=== PATIENT | male | born 1995 | race Caucasian/White ===

== ENCOUNTER 2017-11-17 19:20 | Emergency (ER) | payer SELFPAY | END 2017-11-17 20:15 | disposition home or self-care (01) | LOC: ER 19:20 | DX: K02.9 Dental caries, unspecified (principal); H66.92 Otitis media, unspecified, left ear; J45.909 Unspecified asthma, uncomplicated; I10 Essential (primary) hypertension; Z88.0 Allergy status to penicillin | CPT/HCPCS: 99284 ==

== ENCOUNTER 2018-06-23 06:50 | Emergency (ER) | payer SELFPAY ==
[~2018-06-23] VITALS: Ht 172.7 cm; Wt 176.9 kg
[~2018-06-23 06:50] MED LIST: CEPH-264 PO
--- NOTE | 2018-06-23 06:54 | PHYS DOC ---
Past Medical History Past Medical History: Asthma, Hypertension Past Surgical History: Tonsillectomy, Other Additional Past Surgical Histo: wisdom teeth Alcohol Use: None Drug Use: None Adult General Chief Complaint Chief Complaint: EARACHE/EAR PAIN HPI HPI Patient is a 23 year old male who presents with left ear pain. She complains of pain in the left ear which started over the last 24 hours. He's had no fever or chills. He does relate a prior history of multiple ear infections since he was a child. No neck pain or stiffness. No headaches. Patient is known to have multiple dental caries on the left side and does have scheduled appointment with a dentist later today. Review of Systems Review of Systems Constitutional: Denies fever or chills Eyes: Denies change in visual acuity HENT: Denies nasal congestion or sore throat Respiratory: Denies cough or shortness of breath Cardiovascular: No additional information not addressed in HPI Musculoskeletal: Denies back pain or joint pain Integument: Denies rash or skin lesions Neurologic: Denies headache All other systems were reviewed and found to be within normal limits, except as documented in this note. Allergies Allergies Allergies Coded Allergies Type Severity Reaction Last Updated Verified Penicillins Allergy Intermediate 05/20/14 No Physical Exam Physical Exam Constitutional: Well developed, well nourished, no acute distress, non-toxic appearance HENT: Normocephalic, atraumatic, bilateral external ears normal, oropharynx moist, no oral exudates, nose normal, TM on left is clear, palomino, with + light reflex, multiple dental caries and fractures are present over the left upper and lower molar area. No abscess or fluctuance is seen. Floor of mouth is soft. Posterior oral pharynx is clear Eyes: PERRLA, EOMI, conjunctiva normal, no discharge Neck: Normal range of motion, no tenderness, supple, no stridor Cardiovascular:Heart rate regular rhythm, no murmur Lungs & Thorax: Bilateral breath sounds clear to auscultation Skin: Warm, dry Extremities: No tenderness Neurologic: Alert and oriented X 3 Psychologic: Affect normal EKG EKG [] Radiology/Procedures Radiology/Procedures [] Course & Med Decision Making Course & Med Decision Making Pertinent Labs and Imaging studies reviewed. (See chart for details) Patient is seen for left ear pain. No acute ear infection is present on exam but the patient describes pain along the SCM muscle and left jaw. Poor dentition. Source of the patient's discomfort seems most likely from a dental source. He is given ibuprofen and clindamycin in the ER (PCN allergic). Discharged home with Rx for the same. Advised to keep his already scheduled appointment later today. F/u with PCP also or return to the ER for any new or worsening symptoms. Dragon Disclaimer Dragon Disclaimer This electronic medical record was generated, in whole or in part, using a voice recognition dictation system. Departure Departure Referrals: NO PCP (PCP) Scripts Clindamycin Hcl (CLINDAMYCIN HCL) 300 Mg Capsule 300 MG PO TID for 7 Days, #21 CAP Prov: DANNY WEINSTEIN DO 06/23/18 Ibuprofen (IBUPROFEN) 800 Mg Tablet 800 MG PO PRN TID PRN for PAIN, #21 TAB take with food or milk to avoid upsetting stomach Prov: DANNY WEINSTEIN DO 06/23/18 DANNY WEINSTEIN DO Jun 23, 2018 06:54
[2018-06-23 07:12] VITALS: BP 170/88
[2018-06-23] MEDS ORDERED: CLIN300C8 PO (07:22)
[2018-06-23] MEDS ORDERED: IBUP-1060 PO (07:22)
[2018-06-23] MEDS: IBUPROFEN 800 MG TABLET. PO ONE (07:30)
[2018-06-23] MEDS ORDERED: traMADol 50 MG TABLET ONE (07:31)
[2018-06-23] MEDS ORDERED: TRAM50TA PO (07:31)
[2018-06-23] MEDS: CLINDAMYCIN HCL 150 MG CAPSULE. PO ONE (07:48)
[2018-06-23] MEDS: traMADol 50 MG TABLET PO ONE (07:51)
== END 2018-06-23 07:34 | disposition home or self-care (01) ==
LOC: ER 06:50
DX: H92.02 Otalgia, left ear (principal); K02.9 Dental caries, unspecified; J45.909 Unspecified asthma, uncomplicated; I10 Essential (primary) hypertension; Z90.89 Acquired absence of other organs; Z88.0 Allergy status to penicillin
CPT/HCPCS: 99283

== ENCOUNTER 2020-12-08 02:59 | Emergency (ER) | payer SELFPAY ==
[~2020-12-08] VITALS: Ht 177.8 cm; Wt 193.4 kg
[~2020-12-08 02:59] MED LIST changes: +CLIN300C9 PO; +IBUP-1060 PO; +TRAM50TA PO
--- NOTE | 2020-12-08 03:45 | ED.ADGEN ---
Past Medical History Past Medical History: Asthma, Diabetes-Type II, Hypertension Past Surgical History: Tonsillectomy, Other Additional Past Surgical Histo: wisdom teeth Smoking Status: Never Smoker Alcohol Use: Rarely Drug Use: None General Adult EDM: Chief Complaint: SKIN RASH/ABSCESS HPI: HPI: 25-year-old male coming in for diffuse upper body skin rash. Patient states the rash started off on his right arm and then his left arm. None stated it went across his trunk. Says the rash is itchy and he has been scratching at it. Has been using angh-jlr-zokysve creams without improvement. Denies any fevers, has had a nonproductive cough. No vomiting or diarrhea. Patient states he has a history of asthma and possibly diabetes. Denies any history of IV drug use. No denies any sick contacts. Review of Systems: Review of Systems: All other systems within normal limits except for as noted in the HPI Current Medications: Current Medications Medications (Trade) Dose Ordered Sig/Jocelyne Start Time Stop Time Status Last Admin Dose Admin Diphenhydramine HCl (Benadryl) 50 mg 1X ONCE 12/08/20 04:00 12/08/20 04:01 DC 12/08/20 04:09 50 MG Sodium Chloride 500 ml @ 500 mls/hr 1X ONCE 12/08/20 04:00 12/08/20 04:59 DC 12/08/20 04:06 500 MLS/HR Allergies: Allergies: Allergies Coded Allergies Type Severity Reaction Last Updated Verified Penicillins Allergy Intermediate 05/20/14 No Physical Exam: PE: Constitutional: Well developed, well nourished, obese, ill-appearing [] HENT: Normocephalic, atraumatic, bilateral external ears normal, nose normal. [] Eyes: PERRLA, conjunctiva normal, no discharge. [] Neck: No rigidity, supple, no stridor. [] Cardiovascular: Tachycardic, regular rhythm, brisk cap refill [] Lungs & Thorax: Symmetric chest expansion, tachypneic [] Abdomen: Soft, nondistended. Skin: Warm, diffuse macular rash with excoriated areas] Back: Unremarkable Extremities: No deformities, range of motion grossly intact, no lower extremity edema [] Neurologic: Alert and oriented X 3, no focal deficits noted. [] Psychologic: Affect normal, judgement normal, mood normal. [] Current Patient Data: Labs: Laboratory Tests Test 12/08/20 04:00 12/08/20 04:24 White Blood Count 8.3 x10^3/uL (4.0-11.0) Red Blood Count 5.37 x10^6/uL (4.30-5.70) Hemoglobin 15.5 g/dL (13.0-17.5) Hematocrit 45.8 % (39.0-53.0) Mean Corpuscular Volume 85 fL (79-100) Mean Corpuscular Hemoglobin 29 pg (25-35) Mean Corpuscular Hemoglobin Concent 34 g/dL (31-37) Red Cell Distribution Width 14.5 % (11.5-14.5) Platelet Count 240 x10^3/uL (140-400) Neutrophils (%) (Auto) 75 % (31-73) H Lymphocytes (%) (Auto) 9 % (24-48) L Monocytes (%) (Auto) 7 % (0-9) Eosinophils (%) (Auto) 8 % (0-3) H Basophils (%) (Auto) 1 % (0-3) Neutrophils # (Auto) 6.3 x10^3/uL (1.8-7.7) Lymphocytes # (Auto) 0.8 x10^3/uL (1.0-4.8) L Monocytes # (Auto) 0.6 x10^3/uL (0.0-1.1) Eosinophils # (Auto) 0.6 x10^3/uL (0.0-0.7) Basophils # (Auto) 0.0 x10^3/uL (0.0-0.2) Sodium Level 137 mmol/L (136-145) Potassium Level 4.0 mmol/L (3.5-5.1) Chloride Level 102 mmol/L (98-107) Carbon Dioxide Level 25 mmol/L (21-32) Anion Gap 10 (6-14) Blood Urea Nitrogen 10 mg/dL (8-26) Creatinine 1.0 mg/dL (0.7-1.3) Estimated GFR (Cockcroft-Gault) 89.6 BUN/Creatinine Ratio 10 (6-20) Glucose Level 121 mg/dL (70-99) H Lactic Acid Level 1.5 mmol/L (0.4-2.0) Calcium Level 8.3 mg/dL (8.5-10.1) L Total Bilirubin 1.2 mg/dL (0.2-1.0) H Aspartate Amino Transferase (AST) 38 U/L (15-37) H Alanine Aminotransferase (ALT) 55 U/L (16-63) Alkaline Phosphatase 69 U/L (46-116) Troponin I Quantitative < 0.017 ng/mL (0.000-0.055) AG-Tht-L-Type Natriuretic Peptide 144 pg/mL (0-124) H Total Protein 6.7 g/dL (6.4-8.2) Albumin 3.1 g/dL (3.4-5.0) L Albumin/Globulin Ratio 0.9 (1.0-1.7) L POC Venous pH 7.35 (7.32-7.42) POC Venous pCO2 44 mmHg (41-51) POC Venous pO2 64 mmHg (20-40) H Venous Blood HCO3 24 mmol/L (24-28) POC Venous O2 Saturation ([place]) 91 % POC FiO2 21.0 Laboratory Tests 12/08/20 04:00 Laboratory Tests 12/08/20 04:00 Vital Signs: Vital Signs Date Time Temp Pulse Resp B/P (MAP) Pulse Ox O2 Delivery O2 Flow Rate FiO2 12/08/20 04:42 106 143/86 (105) 100 Room Air 12/08/20 03:00 98.7 20 98.7 EKG: EKG: Sinus tachycardia, heart enters the beats per minute, normal axis, no ST elevation or depression, no ectopy. Normal intervals. [] Heart Score: C/O Chest Pain: N/A Risk Factors: Risk Factors: DM, Current or recent (<one month) smoker, HTN, HLP, family history of CAD, obesity. Risk Scores: Score 0 - 3: 2.5% MACE over next 6 weeks - Discharge Home Score 4 - 6: 20.3% MACE over next 6 weeks - Admit for Clinical Observation Score 7 - 10: 72.7% MACE over next 6 weeks - Early Invasive Strategies Radiology/Procedures: Radiology/Procedures: [] Course & Med Decision Making: Course & Med Decision Making Symptoms improved and labs unremarkable. Patient feeling better after IV Benadryl. Will give Solu-Medrol and first dose of clindamycin here. Patient has a reaction of hives to penicillins. Discussed return precautions if not getting better. Ally Disclaimer: Ally Disclaimer: This electronic medical record was generated, in whole or in part, using a voice recognition dictation system. Departure Departure Impression: Primary Impression: Hives Additional Impression: Cellulitis Disposition: 01 DC HOME SELF CARE/HOMELESS Condition: STABLE Referrals: NO PCP (PCP) Patient Instructions: Hives Additional Instructions: Follow-up with a primary care provider from the packet provided. Return to emergency department if symptoms worsen, difficulty breathing or throat swelling, fevers over 100. Scripts Hydrocodone/Acetaminophen (Hydrocodone-Acetamin 5-325 mg) 1 Each Tablet 1 EACH PO PRN Q6-8HRS PRN for PAIN for 3 Days, #10 TAB Prov: DOLORES ROME MD 12/08/20 Hydroxyzine Hcl (HYDROXYZINE HCL) 50 Mg Tablet 50 MG PO TID PRN for ITCHING for 10 Days, #30 TAB Prov: DOLORES ROME MD 12/08/20 Clindamycin Hcl (CLINDAMYCIN HCL) 150 Mg Capsule 3 CAP PO TID for antibiotic for 7 Days, #63 CAP Prov: DOLORES ROME MD 12/08/20 Problem Qualifiers DOLORES ROME MD Dec 08, 2020 03:45
--- NOTE | 2020-12-08 03:58 | EKG ---
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
[2020-12-08] MEDS: IV NORMAL SALINE 500ML BAG 500 ML IV ONE (04:06)
[2020-12-08] MEDS: diphenhydrAMINE 50 MG/ML VIAL IVP ONE (04:09)
[2020-12-08 04:13] LABS: BASO % 1 % (0-3); EOS # 0.6 x10^3/uL (0.0-0.7); EOS % 8 % (0-3); HEMATOCRIT 45.8 % (39.0-53.0); HEMOGLOBIN 15.5 g/dL (13.0-17.5); LYMPH # 0.8 x10^3/uL (1.0-4.8); LYMPH % 9 % (24-48); MEAN CORPUSCULAR HEMOGLOBIN 29 pg (25-35); MEAN CORPUSCULAR HGB CONC 34 g/dL (31-37); MEAN CORPUSCULAR VOLUME 85 fL (79-100); MONO # 0.6 x10^3/uL (0.0-1.1); MONO % 7 % (0-9); NEUT # 6.3 x10^3/uL (1.8-7.7); NEUT % 75 % (31-73); PLATELET COUNT 240 x10^3/uL (140-400); RED BLOOD COUNT 5.37 x10^6/uL (4.30-5.70); RED CELL DISTRIBUTION WIDTH 14.5 % (11.5-14.5); WHITE BLOOD COUNT 8.3 x10^3/uL (4.0-11.0)
[2020-12-08 04:25] LABS: CALCIUM 8.3 mg/dL (8.5-10.1); GFR 89.6
[2020-12-08 04:28] LABS: ISTAT BE VENOUS -1 mmol/L (0-3); ISTAT HCO3 VEN 24 mmol/L (24-28); ISTAT PCO2 VEN 44 mmHg (41-51); ISTAT PH VEN 7.35 (7.32-7.42); ISTAT PO2 VEN 64 mmHg (20-40); ISTAT SAT O2 VEN 91 %; ISTAT TCO2 VEN 26 mmol/L (21-32)
[2020-12-08 04:31] LABS: ALBUMIN 3.1 g/dL (3.4-5.0); ALBUMIN/GLOBULIN RATIO 0.9 (1.0-1.7); TOTAL BILIRUBIN 1.2 mg/dL (0.2-1.0); TOTAL PROTEIN 6.7 g/dL (6.4-8.2)
[2020-12-08] MEDS ORDERED: CLIN150C15 PO (05:32)
[2020-12-08] MEDS ORDERED: HYDR50TA PO (05:32)
[2020-12-08] MEDS ORDERED: HYDR-2759 PO (05:32)
[2020-12-08] MEDS: CLINDAMYCIN HCL 150 MG CAPSULE. PO ONE (05:33)
[2020-12-08] MEDS: methylPREDNISolone SOD SUCC PF 125 MG/2 ML VIAL. IV ONE (05:33)
[2020-12-08 05:35] VITALS: BP 153/70
[2020-12-08 05:48] LABS: BILIRUBIN,URINE SMALL (NEG); CLARITY,URINE CLEAR; COLOR,URINE AMBER; NITRITE,URINE NEGATIVE (NEG); PH,URINE 5.5 (<5.0-8.0); PROTEIN,URINE 30 mg/dL (NEG-TRACE); UROBILINOGEN,URINE 0.2 mg/dL (0.2 mg/dL)
[2020-12-08 06:02] LABS: BACTERIA,URINE 0 /HPF (0-FEW); RBC,URINE 0 /HPF (0-2)
[2020-12-08 06:03] LABS: GRANULAR CASTS,URINE MODERATE /HPF; HYALINE CASTS, URINE MODERATE /HPF
[2020-12-08 06:05] LABS: BARBITURATES NEG (NEG); BENZODIAZEPINES NEG (NEG); CANNABINOIDS NEG (NEG); COCAINE NEG (NEG); METHADONE NEG (NEG); OPIATES NEG (NEG); PHENCYCLIDINE NEG (NEG)
[2020-12-08 06:08] LABS: AMPHETAMINE/METHAMPHETAMINE NEG (NEG)
== END 2020-12-08 05:40 | disposition home or self-care (01) ==
LOC: ER 02:59
DX: L50.9 Urticaria, unspecified (principal); L03.818 Cellulitis of other sites; J45.909 Unspecified asthma, uncomplicated; E11.9 Type 2 diabetes mellitus without complications; I10 Essential (primary) hypertension; Z88.0 Allergy status to penicillin
CPT/HCPCS: 36415; 80053; 80307; 81001; 82803; 83605; 83880; 84484; 85025; 87040; 87086; 93005; 96361; 96374; 96375; 99285; J1200; J2930; J7040

== ENCOUNTER 2020-12-14 22:48 | Inpatient (IN) | payer SELFPAY ==
[~2020-12-14] VITALS: Ht 177.8 cm; Wt 188.5 kg
[~2020-12-14 22:48] MED LIST changes: +CLIN150C15 PO; +HYDR-2759 PO; +HYDR50TA PO
--- NOTE | 2020-12-15 01:08 | PHYS DOC ---
Past Medical History Past Medical History: Asthma, Diabetes-Type II, Hypertension Past Surgical History: Tonsillectomy, Other Additional Past Surgical Histo: wisdom teeth Smoking Status: Never Smoker Alcohol Use: Rarely Drug Use: None General Adult EDM: Chief Complaint: SKIN PROBLEM HPI: HPI: Patient is a 25 year old male presents with a chief complaint of rash. Rash is diffuse in nature includes bilateral extremities torso and abdomen. Patient states rash is been ongoing for 1 month progressively becoming worse. Patient was seen in the emergency department 1 week ago placed on antibiotics. Review of Systems: Review of Systems: Review of systems: Constitutional symptoms- No fever, no chills. Eyes- No Discharge, No Visual Loss Respiratory symptoms- No shortness of breath, No wheezing, No Dyspnea on Exertion Cardiovascular Systems; No chest pain, No Palpitations, No syncope Gastrointestinal symptoms: NO abdominal pain, no nausea, no vomiting or diarrhea. Genitourinary symptoms: No dysuria. Musculoskeletal symptoms: No back pain No extremity pain. NEUROLOGICAL Symptoms: No headache, no generalized weakness; No focal Weakness Skin positive rash positive itch Heart Score: C/O Chest Pain: No Risk Factors: Risk Factors: DM, Current or recent (<one month) smoker, HTN, HLP, family history of CAD, obesity. Risk Scores: Score 0 - 3: 2.5% MACE over next 6 weeks - Discharge Home Score 4 - 6: 20.3% MACE over next 6 weeks - Admit for Clinical Observation Score 7 - 10: 72.7% MACE over next 6 weeks - Early Invasive Strategies Allergies: Allergies: Allergies Coded Allergies Type Severity Reaction Last Updated Verified Penicillins Allergy Intermediate 05/20/14 No Physical Exam: PE: Constitutional: Well developed, well nourished, no acute distress, non-toxic appearance. [] HENT: Normocephalic, atraumatic, bilateral external ears normal, oropharynx moist, no oral exudates, nose normal. [] Eyes: PERRLA, EOMI, conjunctiva normal, no discharge. [] Neck: Normal range of motion, no tenderness, supple, no stridor. [] Cardiovascular:Heart rate regular rhythm, no murmur [] Lungs & Thorax: Bilateral breath sounds clear to auscultation [] Abdomen: Bowel sounds normal, soft, no tenderness, no masses, no pulsatile masses. [] Skin: Diffuse rash extremities TORSO abdomen excoriated regions Back: No tenderness, no CVA tenderness. [] Extremities: No tenderness, no cyanosis, no clubbing, ROM intact, no edema. [] Neurologic: Alert and oriented X 3, normal motor function, normal sensory function, no focal deficits noted. [] Psychologic: Affect normal, judgement normal, mood normal. [] Current Patient Data: Vital Signs: Vital Signs Date Time Temp Pulse Resp B/P (MAP) Pulse Ox O2 Delivery O2 Flow Rate FiO2 12/14/20 23:35 97.6 96 20 138/73 (94) 99 Room Air 97.6 EKG: EKG: [] Radiology/Procedures: Radiology/Procedures: [] Course & Med Decision Making: Course & Med Decision Making Pertinent Labs and Imaging studies reviewed. (See chart for details) [] Patient admitted to the hospital treated with vancomycin and admitted for further evaluation and treatment. Ally Disclaimer: Ally Disclaimer: This electronic medical record was generated, in whole or in part, using a voice recognition dictation system. Departure Departure Impression: Primary Impression: Rash and nonspecific skin eruption Additional Impression: Cellulitis Disposition: ADMITTED INPT THIS HOSP Condition: STABLE Referrals: NO PCP (PCP) ARCHANA GEIGER DO Dec 15, 2020 01:08
[2020-12-15] MEDS ORDERED: VANCOMYCIN 1.25 GM in IV NORMAL SALINE 250ML 250 ML IV ONE (02:00)
[2020-12-15 03:06] LABS: BASO # 0.1 x10^3/uL (0.0-0.2); BASO % 1 % (0-3); EOS # 1.2 x10^3/uL (0.0-0.7); EOS % 21 % (0-3); HEMATOCRIT 41.7 % (39.0-53.0); HEMOGLOBIN 14.4 g/dL (13.0-17.5); LYMPH # 1.2 x10^3/uL (1.0-4.8); LYMPH % 21 % (24-48); MEAN CORPUSCULAR HEMOGLOBIN 29 pg (25-35); MEAN CORPUSCULAR HGB CONC 35 g/dL (31-37); MEAN CORPUSCULAR VOLUME 84 fL (79-100); MONO # 0.5 x10^3/uL (0.0-1.1); MONO % 10 % (0-9); NEUT # 2.6 x10^3/uL (1.8-7.7); NEUT % 47 % (31-73); PLATELET COUNT 226 x10^3/uL (140-400); RED BLOOD COUNT 4.99 x10^6/uL (4.30-5.70); RED CELL DISTRIBUTION WIDTH 14.2 % (11.5-14.5); WHITE BLOOD COUNT 5.5 x10^3/uL (4.0-11.0)
[2020-12-15 03:23] LABS: CREATININE 0.9 mg/dL (0.7-1.3); GFR 101.2; POTASSIUM 4.1 mmol/L (3.5-5.1)
[2020-12-15 03:29] LABS: ALBUMIN 3.1 g/dL (3.4-5.0); ALBUMIN/GLOBULIN RATIO 0.9 (1.0-1.7); TOTAL BILIRUBIN 1.3 mg/dL (0.2-1.0); TOTAL PROTEIN 6.5 g/dL (6.4-8.2)
[2020-12-15 03:33] VITALS: BP 153/83
--- NOTE | 2020-12-15 04:31 | NUR ---
The patient, DEEDEE BARKLEY, 25 y/o, M admitted by CORNEL ANTHONY III, DO, was given written information regarding hospital policies, unit procedures and contact persons. Valuables were checked and .
[2020-12-15 04:54] LABS: % BANDS 2 % (0-9); % EOS 18 % (0-5); % LYMPHS 20 % (24-48); % MONOS 10 % (0-10); % SEGS 50 % (35-66); PLT ESTIMATE ADEQUATE (ADEQUATE); TOXIC VACUOLATION SLIGHT
[2020-12-15 07:00] VITALS: BP 146/110
--- NOTE | 2020-12-15 07:38 | PDOC1 ---
History and Physical Date of Admission Date of Admission DATE: 12/15/20 TIME: 07:36 Identification/Chief Complaint Chief Complaint Rash Source Source: Patient History of Present Illness History of Present Illness Mr Varghese is a 25 year old male w/ PMHx Asthma, Diabetes-Type II, Hypertension presents with a chief complaint of rash. Rash is diffuse in nature includes bilateral extremities torso and abdomen. Patient states rash is been ongoing for 1 month progressively becoming worse. Patient was seen in the emergency department 1 week ago placed on antibiotics. Rash is intensely pruritic, covering more than 60% of his body with crusting in multiple locations. He notes he has "ticks" in his bed. Notably the pictures of the insects he ronel cribe are actually bedbugs. I have educated him on this. Eosinophils 1.2x10^3, otherwise labs WNL. Admitted for further care. Past Medical History Cardiovascular: HTN Pulmonary: Asthma Endocrine: Diabetes Family History Family History: Diabetes, Hypertension Social History Smoke: <1 pack per day ALCOHOL: none Drugs: None Current Problem List Problem List Problems Medical Problems: (1) Cellulitis Status: Acute (2) Rash and nonspecific skin eruption Status: Acute Current Medications Current Medications Current Medications Vancomycin HCl 1.25 gm/Sodium Chloride 250 ml @ 166.667 mls/hr 1X ONCE IV Last administered on 12/15/20at 03:02; Start 12/15/20 at 02:00; Stop 12/15/20 at 03:29; Status DC Active Scripts Active Allergies Allergies: Coded Allergies: Penicillins (Unverified Allergy, Intermediate, 05/20/14) ROS General: YES: Fatigue, Malaise; No: Chills, Night Sweats, Appetite, Other PSYCHOLOGICAL ROS: No: Anxiety, Behavioral Disorder, Concentration difficultie, Decreased libido, Depression, Disorientation, Hallucinations, Hostility, Irritablity, Memory difficulties, Mood Swings, Obsessive thoughts, Physical abuse, Sexual abuse, Sleep disturbances, Suicidal ideation, Other Eyes: No Blurry vision, No Decreased vision, No Double vision, No Dry eyes, No Excessive tearing, No Eye Pain, No Itchy Eyes, No Loss of vision, No Photophobia, No Scotomata, No Uses contacts, No Uses glasses, No Other HEENT: No: Heacaches, Visual Changes, Hearing change, Nasal congestion, Nasal discharge, Oral lesions, Sinus pain, Sore Throat, Epistaxis, Sneezing, Snoring, Tinnitus, Vertigo, Vocal changes, Other ALLERGY AND IMMUNOLOGY: YES: Hives, Insect Bite Sensitivity; No: Itchy/Watery Eyes, Nasal Congestion, Post Nasal Drip, Seasonal Allergies, Other Hematological and Lymphatic: No: Bleeding Problems, Blood Clots, Blood Transfusions, Brusing, Night Sweats, Pallor, Swollen Lymph Nodes, Other ENDOCRINE: No: Breast Changes, Galactorrhea, Hair Pattern Changes, Hot Flashes, Malaise/lethargy, Mood Swings, Palpitations, Polydipsia/polyuria, Skin Changes, Temperature Intolerance, Unexpected Weight Changes, Other Breast: No New/Changing Breast Lumps, No Nipple changes, No Nipple discharge, No Other Respiratory: No: Cough, Hemoptysis, Orthopnea, Pleuritic Pain, Shortness of breath, SOB with excertion, Sputum Changes, Stridor, Tachypnea, Wheezing, Other Cardiovascular: No Chest Pain, No Palpitations, No Orthopnea, No Paroxysmal Noc. Dyspnea, No Edema, No Lt Headedness, No Other Gastrointestinal: No Nausea, No Vomiting, No Abdominal Pain, No Diarrhea, No Constipation, No Melena, No Hematochezia, No Other Genitourinary: No Dysuria, No Frequency, No Incontinence, No Hematuria, No Retention, No Discharge, No Urgency, No Pain, No Flank Pain, No Other, No , No , No , No , No , No , No Neurological: No Behavorial Changes, No Bowel/Bladder ControlChng, No Confu tiffanie, No Dizziness, No Gait Disturbance, No Headaches, No Impaired Coord/balance, No Memory Loss, No Numbness/Tingling, No Seizures, No Speech Problems, No Tremors, No Visual Changes, No Weakness, No Other Skin: Yes Eczema; No Dry Skin, No Hair Changes, No Lumps, No Mole Changes, No Mottling, No Nail Changes, No Pruritus, No Rash, No Skin Lesion Changes, No Other, No Acne Physical Exam General: Alert, Oriented X3, Cooperative, moderate distress HEENT: Atraumatic, PERRLA, EOMI, Mucous membr. moist/pink Lungs: Clear to auscultation, Normal air movement Heart: S1S2, RRR, no thrills, no rubs, no gallops, no murmurs Abdomen: Normal bowel sounds, Soft, No tenderness, No hepatosplenomegaly, No masses Extremities: No clubbing, No cyanosis, No edema, Normal pulses, No tenderness/swelling Skin: Other (Rash sparing extensor surfaces, raised wheals with yellow crusting) Neuro: Normal gait, Normal speech, Strength at 5/5 X4 ext, Normal tone, Sensation intact, Cranial nerves 3-12 NL, Reflexes 2+ Psych/Mental Status: Mental status NL, Mood NL Vitals Vitals Vital Signs Date Time Temp Pulse Resp B/P (MAP) Pulse Ox O2 Delivery O2 Flow Rate FiO2 12/15/20 04:18 Room Air 12/15/20 03:33 97.4 92 20 153/83 (106) 100 97.4 Labs Labs Laboratory Tests Test 12/15/20 03:00 White Blood Count 5.5 x10^3/uL (4.0-11.0) Red Blood Count 4.99 x10^6/uL (4.30-5.70) Hemoglobin 14.4 g/dL (13.0-17.5) Hematocrit 41.7 % (39.0-53.0) Mean Corpuscular Volume 84 fL (79-100) Mean Corpuscular Hemoglobin 29 pg (25-35) Mean Corpuscular Hemoglobin Concent 35 g/dL (31-37) Red Cell Distribution Width 14.2 % (11.5-14.5) Platelet Count 226 x10^3/uL (140-400) Neutrophils (%) (Auto) 47 % (31-73) Lymphocytes (%) (Auto) 21 % (24-48) Monocytes (%) (Auto) 10 % (0-9) Eosinophils (%) (Auto) 21 % (0-3) Basophils (%) (Auto) 1 % (0-3) Neutrophils # (Auto) 2.6 x10^3/uL (1.8-7.7) Lymphocytes # (Auto) 1.2 x10^3/uL (1.0-4.8) Monocytes # (Auto) 0.5 x10^3/uL (0.0-1.1) Eosinophils # (Auto) 1.2 x10^3/uL (0.0-0.7) Basophils # (Auto) 0.1 x10^3/uL (0.0-0.2) Segmented Neutrophils % 50 % (35-66) Band Neutrophils % 2 % (0-9) Lymphocytes % 20 % (24-48) Monocytes % 10 % (0-10) Eosinophils % 18 % (0-5) Toxic Vacuolation Slight Platelet Estimate Adequate (ADEQUATE) Sodium Level 136 mmol/L (136-145) Potassium Level 4.1 mmol/L (3.5-5.1) Chloride Level 103 mmol/L (98-107) Carbon Dioxide Level 23 mmol/L (21-32) Anion Gap 10 (6-14) Blood Urea Nitrogen 6 mg/dL (8-26) Creatinine 0.9 mg/dL (0.7-1.3) Estimated GFR (Cockcroft-Gault) 101.2 BUN/Creatinine Ratio 7 (6-20) Glucose Level 94 mg/dL (70-99) Calcium Level 8.0 mg/dL (8.5-10.1) Total Bilirubin 1.3 mg/dL (0.2-1.0) Aspartate Amino Transf (AST/SGOT) 39 U/L (15-37) Alanine Aminotransferase (ALT/SGPT) 59 U/L (16-63) Alkaline Phosphatase 63 U/L (46-116) Total Protein 6.5 g/dL (6.4-8.2) Albumin 3.1 g/dL (3.4-5.0) Albumin/Globulin Ratio 0.9 (1.0-1.7) Laboratory Tests Test 12/15/20 03:00 White Blood Count 5.5 x10^3/uL (4.0-11.0) Red Blood Count 4.99 x10^6/uL (4.30-5.70) Hemoglobin 14.4 g/dL (13.0-17.5) Hematocrit 41.7 % (39.0-53.0) Mean Corpuscular Volume 84 fL (79-100) Mean Corpuscular Hemoglobin 29 pg (25-35) Mean Corpuscular Hemoglobin Concent 35 g/dL (31-37) Red Cell Distribution Width 14.2 % (11.5-14.5) Platelet Count 226 x10^3/uL (140-400) Neutrophils (%) (Auto) 47 % (31-73) Lymphocytes (%) (Auto) 21 % (24-48) Monocytes (%) (Auto) 10 % (0-9) Eosinophils (%) (Auto) 21 % (0-3) Basophils (%) (Auto) 1 % (0-3) Neutrophils # (Auto) 2.6 x10^3/uL (1.8-7.7) Lymphocytes # (Auto) 1.2 x10^3/uL (1.0-4.8) Monocytes # (Auto) 0.5 x10^3/uL (0.0-1.1) Eosinophils # (Auto) 1.2 x10^3/uL (0.0-0.7) Basophils # (Auto) 0.1 x10^3/uL (0.0-0.2) Segmented Neutrophils % 50 % (35-66) Band Neutrophils % 2 % (0-9) Lymphocytes % 20 % (24-48) Monocytes % 10 % (0-10) Eosinophils % 18 % (0-5) Toxic Vacuolation Slight Platelet Estimate Adequate (ADEQUATE) Sodium Level 136 mmol/L (136-145) Potassium Level 4.1 mmol/L (3.5-5.1) Chloride Level 103 mmol/L (98-107) Carbon Dioxide Level 23 mmol/L (21-32) Anion Gap 10 (6-14) Blood Urea Nitrogen 6 mg/dL (8-26) Creatinine 0.9 mg/dL (0.7-1.3) Estimated GFR (Cockcroft-Gault) 101.2 BUN/Creatinine Ratio 7 (6-20) Glucose Level 94 mg/dL (70-99) Calcium Level 8.0 mg/dL (8.5-10.1) Total Bilirubin 1.3 mg/dL (0.2-1.0) Aspartate Amino Transf (AST/SGOT) 39 U/L (15-37) Alanine Aminotransferase (ALT/SGPT) 59 U/L (16-63) Alkaline Phosphatase 63 U/L (46-116) Total Protein 6.5 g/dL (6.4-8.2) Albumin 3.1 g/dL (3.4-5.0) Albumin/Globulin Ratio 0.9 (1.0-1.7) VTE Prophylaxis Ordered VTE Prophylaxis Devices: No VTE Pharmacological Prophylaxi: No Assessment/Plan Assessment/Plan A/P: Rash - allergic dermatitis likely from multiple bedbug bites. Going on for greater than 1 months, will give steroids IV, benadryl, singulair. Alcohol spray to kill his bedbugs at home Cellulitis - in bilateral arms and legs due to excoriations. IV vancomycin initiated. Can transition to PO doxycycline and keflex when improved Bedbug infestation - will search clothing. Advised on bedbug eradication strategies. Could prescribe permethrin on d/c, however with his skin condition this could worsen his rash. Asthma - prn nebs Diabetes-Type II - sliding scale Hypertension - will given prn hydralazine, has not been taking his home meds FEN- ADA diet PPX - Ambulatory, low risk FULL CODE Dispo - inpatient for severe allergic reaction and severe cellulitis due to bedbug infestation Justifications for Admission Other Justification JASWANT MONROE MD Dec 15, 2020 07:38
[2020-12-15] MEDS ORDERED: MONTELUKAST SODIUM 10 MG TABLET. PO ONE (07:45)
[2020-12-15] MEDS: FAMOTIDINE 20 MG TABLET. PO SCH ×2 (09:10→20:15)
[2020-12-15] MEDS: diphenhydrAMINE HCL 25 MG CAPSULE PO PRN ×2 (09:10→20:15)
[2020-12-15 11:00] VITALS: BP 117/70
[2020-12-15] MEDS: predniSONE 20 MG TABLET PO SCH (12:10)
--- NOTE | 2020-12-15 13:52 | NUR ---
SS following for discharge planning. SS reviewed pt chart and discussed with pt RN. Pt is from home and is currently on room air. Self pay. Pt on PO Prednisone and Benadryl. Discharge plan is to home when medically ready. SS will continue to follow for discharge planning.
[2020-12-15] MEDS ORDERED: methylPREDNISolone SOD SUCC PF 40 MG/ML VIAL. IV SCH (14:00)
[2020-12-15 15:00] VITALS: BP 175/92
[2020-12-15 19:43] VITALS: BP 153/95
[2020-12-15] MEDS: MONTELUKAST SODIUM 10 MG TABLET. PO SCH (20:15)
[2020-12-15] MEDS ORDERED: DEXTROSE 50% 25 GM / 50ML DISP.SYRIN. IV PRN (22:00)
[2020-12-15 22:19] VITALS: BP 159/94
[2020-12-15] MEDS: DOXYCYCLINE HYCLATE 100 MG TABLET PO SCH (22:39)
[2020-12-16] VITALS (7 sets, daily range): BP systolic 160–213; BP diastolic 68–95
[2020-12-16] MEDS: INSULIN LISPRO 300 UNITS/3 ML VIAL. SQ SCH ×3 (08:00→17:07)
--- NOTE | 2020-12-16 08:09 | PDOC ---
[facility] [facility] PROGRESS NOTE Date of Service DOS: DATE: 12/16/20 TIME: 08:08 Chief Complaint Chief Complaint A/P: Rash - allergic dermatitis likely from multiple bedbug bites. Going on for greater than 1 months, will give steroids IV, benadryl, singulair. Alcohol spray to kill his bedbugs at home Cellulitis - in bilateral arms and legs due to excoriations. IV vancomycin initiated. Can transition to PO doxycycline and keflex when improved Bedbug infestation - will search clothing. Advised on bedbug eradication strategies. Could prescribe permethrin on d/c, however with his skin condition this could worsen his rash. Asthma - prn nebs Diabetes-Type II - sliding scale Hypertension - will given prn hydralazine, has not been taking his home meds FEN- ADA diet PPX - Ambulatory, low risk FULL CODE Dispo - inpatient for severe allergic reaction and severe cellulitis due to bedbug infestation History of Present Illness History of Present Illness Mr Varghese is a 25 year old male w/ PMHx Asthma, Diabetes-Type II, Hypertension presents with a chief complaint of rash. Rash is diffuse in nature includes bilateral extremities torso and abdomen. Patient states rash is been ongoing for 1 month progressively becoming worse. Patient was seen in the emergency department 1 week ago placed on antibiotics. Rash is intensely pruritic, covering more than 60% of his body with crusting in multiple locations. He notes he has "ticks" in his bed. Notably the pictures of the insects he describe are actually bedbugs. I have educated him on this. Eosinophils 1.2x10^3, otherwise labs WNL. Admitted for further care. His rash has improved with steroids. Has improvement in his cellulitis, but does have a pocket on his right lower back that has been draining. No fluctuance. Vitals/I&O Vitals/I&O: Vital Signs Date Time Temp Pulse Resp B/P (MAP) Pulse Ox O2 Delivery O2 Flow Rate FiO2 12/16/20 07:00 98.0 89 20 160/95 (116) 100 Room Air 98.0 I & O 12/15/20 12/15/20 12/16/20 15:00 23:00 07:00 Intake Total 50 ml 400 ml Balance 50 ml 400 ml Physical Exam General: Alert, Oriented X3, Cooperative, moderate distress Abdomen: Normal bowel sounds, Soft, No tenderness, No hepatosplenomegaly, No masses Extremities: No clubbing, No cyanosis, No edema, Normal pulses, No tenderness/swelling Skin: Other (Rash sparing extensor surfaces, raised wheals with yellow crusting) Labs Labs: Laboratory Tests Test 12/15/20 22:23 Glucose (Fingerstick) 96 mg/dL (70-99) Assessment and Plan Assessmemt and Plan Problems Medical Problems: (1) Cellulitis Status: Acute (2) Rash and nonspecific skin eruption Status: Acute Comment Review of Relevant I have reviewed the following items jennifer (where applicable) has been applied. Medications: Current Medications Medications (Trade) Dose Ordered Sig/Jocelyne Route PRN Reason Start Time Stop Time Status Last Admin Dose Admin Montelukast Sodium (Singulair) 10 mg QHS PO 12/15/20 21:00 12/15/20 20:15 Diphenhydramine HCl (Benadryl) 25 mg PRN Q6HRS PRN PO ITCHING 12/15/20 09:00 12/15/20 20:15 Famotidine (Pepcid) 20 mg BID PO 12/15/20 09:00 12/15/20 20:15 Prednisone (Prednisone) 40 mg DAILY PO 12/15/20 11:30 12/15/20 12:10 Doxycycline Hyclate (Vibra-Tab) 100 mg BID PO 12/15/20 22:00 12/15/20 22:39 Justifications for Admission Other Justification JASWANT MONROE MD Dec 16, 2020 08:09
[2020-12-16] MEDS: ACETAMINOPHEN 325 MG TABLET. PO PRN ×2 (09:29→17:01)
[2020-12-16] MEDS: predniSONE 20 MG TABLET PO SCH (09:29)
[2020-12-16] MEDS: diphenhydrAMINE HCL 25 MG CAPSULE PO PRN ×2 (09:29→17:01)
[2020-12-16] MEDS: FAMOTIDINE 20 MG TABLET. PO SCH ×2 (09:30→21:20)
[2020-12-16] MEDS: CEPHALEXIN 250 MG CAPSULE. PO SCH ×2 (09:30→21:20)
[2020-12-16] MEDS: DOXYCYCLINE HYCLATE 100 MG TABLET PO SCH ×2 (09:31→21:20)
[2020-12-16] MEDS ORDERED: hydrALAZINE 20 MG/ML VIAL. IVP PRN (16:00)
[2020-12-16] MEDS: hydrALAZINE 10 MG TABLET PO PRN (19:39)
[2020-12-16] MEDS: MONTELUKAST SODIUM 10 MG TABLET. PO SCH (21:20)
[2020-12-17 03:03] VITALS: BP 188/71
[2020-12-17] MEDS: hydrALAZINE 10 MG TABLET PO PRN ×2 (04:19→20:52)
[2020-12-17 07:42] VITALS: BP 152/81
[2020-12-17] MEDS: INSULIN LISPRO 300 UNITS/3 ML VIAL. SQ SCH ×3 (08:00→17:00)
[2020-12-17] MEDS: FAMOTIDINE 20 MG TABLET. PO SCH ×2 (08:34→20:51)
[2020-12-17] MEDS: diphenhydrAMINE HCL 25 MG CAPSULE PO PRN (08:34)
[2020-12-17] MEDS: DOXYCYCLINE HYCLATE 100 MG TABLET PO SCH ×2 (08:36→20:52)
[2020-12-17] MEDS: CEPHALEXIN 250 MG CAPSULE. PO SCH ×2 (08:36→20:52)
[2020-12-17] MEDS: predniSONE 20 MG TABLET PO SCH (08:36)
[2020-12-17 11:39] VITALS: BP 180/88
[2020-12-17 15:16] VITALS: BP 145/84
--- NOTE | 2020-12-17 15:37 | PDOC ---
GENERAL General: Patient examined chart reviewed today is hospital day 3 for this patient with a bout 2 weeks of escalating widespread exfoliative dermatitis that started on his bilateral upper extremities and now have spread to his trunk both anterior and posterior as well as his bilateral lower extremities anterior and posterior. Rash appears to spare his mucous membranes in his genital area. There is no axillary findings. Rashes not painful or itchy just very disruptive because of the widespread nature. Patient has skin all over the floor of his room. Tells me that he has not had any change in his medications including that he has not had any herbal supplements or nutraceuticals. He has not changed his skin hygiene regimen or his detergents. 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 There are some chemicals there but has not had any exposure. To his knowledge he has not had any exposure to anybody with Covid. He has not been tested here for Covid. He was started on antibiotics in the emergency department a week prior to this admission with just slight improvement in the redness but the widespread nature of the rash persisted. I spoke with nursing and she tells me that she will work on trying to get dermatology consult here it does not sound like that has been as available of late. Patient did have a significant eosinophilia and monocytosis on admission. We will repeat labs in the morning including inflammatory markers and rheumatologic assays. I would also suggest a CT chest abdomen pelvis to rule out underlying occult tumor. This does not appear to be secondary to arthropod bites though may have started out looking that way. The widespread shedding of his skin is concerning. It also does not appear to have the bullous aspect of Moreno-Manfred syndrome. Certainly a dermatology consult would be v kelsey helpful here. Total time today is 35 minutes with greater than 50% in counseling and coordination of care most of which in discussion with patient and nurse. Problems: (1) Exfoliative dermatitis (2) Monocytosis (3) Eosinophilia VITAL SIGNS Vital Signs/I&O: Vital Signs Date Time Temp Pulse Resp B/P (MAP) Pulse Ox O2 Delivery O2 Flow Rate FiO2 12/17/20 15:16 98.4 94 18 145/84 (104) 98 Room Air 98.4 I & O 12/16/20 12/16/20 12/17/20 15:00 23:00 07:00 Intake Total 900 ml 800 ml 0 ml Balance 900 ml 800 ml 0 ml In general the patient is pleasant comfortable alert and oriented x3 no acute distress HEENT exam is notable for exfoliation and is forehead and upper nose. Mucous membranes appear to be spared Neck is soft and supple no adenopathy or thyromegaly noted Chest is clear to auscultation Heart S1-S2 normal regular rate and rhythm no murmurs or gallops are noted Abdomen is severely obese no masses organomegaly noted Extremity exam is notable for widespread exfoliative dermatitis with erythematous sloughing and cracked areas. No obvious superimposed cellulitis is noted though he has been on oral steroids and antibiotics for the last several d ays ALLERGIES Allergies: Allergies Coded Allergies Type Severity Reaction Last Updated Verified Penicillins Allergy Intermediate 12/16/20 Yes MEDS Medications: Current Medications Medications (Trade) Dose Ordered Sig/Jocelyne Start Time Stop Time Status Last Admin Dose Admin Acetaminophen (Tylenol) 650 mg PRN Q6HRS PRN 12/15/20 21:00 12/16/20 17:01 Amlodipine Besylate (Norvasc) 5 mg DAILY 12/17/20 14:30 Cephalexin HCl (Keflex) 500 mg BID 12/16/20 09:00 12/17/20 08:36 Dextrose (Dextrose 50%-Water Syringe) 12.5 gm PRN Q15MIN PRN 12/15/20 22:00 Diphenhydramine HCl (Benadryl) 25 mg PRN Q6HRS PRN 12/15/20 09:00 12/17/20 08:34 Doxycycline Hyclate (Vibra-Tab) 100 mg BID 12/15/20 22:00 12/17/20 08:36 Famotidine (Pepcid) 20 mg BID 12/15/20 09:00 12/17/20 08:34 Hydralazine HCl (Apresoline Inj) 10 mg PRN Q4HRS PRN 12/16/20 16:00 12/16/20 17:57 DC Hydralazine HCl (Apresoline) 10 mg PRN TID PRN 12/16/20 18:00 12/17/20 04:19 Insulin Human Lispro (HumaLOG) 0-9 UNITS TIDWMEALS 12/16/20 08:00 12/16/20 17:07 Methylprednisolone Sodium Succinate (SOLU-Medrol 40MG VIAL) 40 mg Q8HRS 12/15/20 14:00 12/15/20 11:15 DC Montelukast Sodium (Singulair) 10 mg 1X ONCE 12/15/20 07:45 12/15/20 07:46 DC 12/15/20 09:11 Multi-Ingredient Ointment (Hydrocerin, Eucerin Cream) 1 dung PRN Q1HR PRN 12/17/20 15:15 UNV Prednisone (Prednisone) 40 mg DAILY 12/15/20 11:30 12/17/20 08:36 Vancomycin HCl 1.25 gm/Sodium Chloride 250 ml @ 166.667 mls/hr 1X ONCE 12/15/20 02:00 12/15/20 03:29 DC 12/15/20 03:02 Current Medications Medications (Trade) Dose Ordered Sig/Jocelyne Route PRN Reason Start Time Stop Time Status Last Admin Dose Admin Hydralazine HCl (Apresoline) 10 mg PRN TID PRN PO FOR SBP > 160 12/16/20 18:00 12/17/20 04:19 LAB Lab: Laboratory Tests Test 12/16/20 16:19 12/16/20 20:55 12/17/20 07:39 12/17/20 11:43 Glucose (Fingerstick) 165 mg/dL (70-99) H 88 mg/dL (70-99) 77 mg/dL (70-99) 85 mg/dL (70-99) ASSESSMENT & PLAN A&P Plan as noted above This note was created using [employer] and may have omissions and/or errors due to the nature of real-time voice scrub nurse. Justifications for Admission Other Justification MARILUZ MURPHY MD Dec 17, 2020 15:37
[2020-12-17] MEDS: amLODIPine BESYLATE 5 MG TABLET PO SCH (15:40)
[2020-12-17] MEDS: MINERAL OIL/PETROLATUM TOPICAL CREAM 113GM JAR. TP PRN ×2 (16:32→20:53)
[2020-12-17 18:36] VITALS: BP 182/84
[2020-12-17] MEDS: MONTELUKAST SODIUM 10 MG TABLET. PO SCH (20:52)
[2020-12-17] MEDS: TRIAMCINOLONE ACETONIDE 0.1% TOPICAL CREAM 15GM TUBE. TP SCH (20:53)
[2020-12-17 22:57] VITALS: BP 170/81
[2020-12-18 02:40] VITALS: BP 144/72
[2020-12-18 07:00] VITALS: BP 138/63
[2020-12-18] MEDS ORDERED: CONTRAST GIVEN. MC PRN (08:00)
[2020-12-18] MEDS ORDERED: IOHEXOL 240 MG/ML 50ML VIAL. PO ONE (08:00)
[2020-12-18] MEDS: INSULIN LISPRO 300 UNITS/3 ML VIAL. SQ SCH ×3 (08:00→17:00)
[2020-12-18] MEDS ORDERED: IOHEXOL 300 MG/ML 100ML VIAL. IV ONE (08:00)
--- NOTE | 2020-12-18 08:06 | PDOC ---
PROGRESS NOTES Date of Service: DATE: 12/18/20 TIME: 08:06 Chief Complaint Chief Complaint impression Rash - allergic dermatitis likely from multiple bedbug bites. Going on for greater than 1 months, will give steroids IV, benadryl, singulair. Alcohol spray to kill his bedbugs at home Cellulitis - in bilateral arms and legs due to excoriations. IV vancomycin initiated. rx PO doxycycline and keflex when improved Bedbug infestation - will search clothing. Advised on bedbug eradication strategies. Could prescribe permethrin on d/c, however with his skin condition this could worsen his rash. Asthma - prn nebs Diabetes-Type II - sliding scale Hypertension - will given prn hydralazine, has not been taking his home meds hiv neg screen plan FEN- ADA diet PPX - Ambulatory, low risk FULL CODE Dispo - inpatient for severe allergic reaction and severe cellulitis due to bedbug infestation ID CONSULT Dermatology consult as out patient History of Present Illness History of Present Illness Mr Varghese is a 25 year old male w/ PMHx Asthma, Diabetes-Type II, Hypertension presents with a chief complaint of rash. Rash is diffuse in nature includes bilateral extremities torso and abdomen. Patient states rash is been ongoing for 1 month progressively becoming worse. Patient was seen in the emergency department 1 week ago placed on antibiotics. Rash is intensely pruritic, covering more than 60% of his body with crusting in multiple locations. He notes he has "ticks" in his bed. Notably the pictures of the insects he describe are actually bedbugs. I have educated him on this. Eosinophils 1.2x10^3, otherwise labs WNL. Admitted for further care. His rash has improved with steroids. Has improvement in his cellulitis, but does have a pocket on his right lower back that has been draining. No fluctuance. Vitals Vitals Vital Signs Date Time Temp Pulse Resp B/P (MAP) Pulse Ox O2 Delivery O2 Flow Rate FiO2 12/18/20 02:40 98.0 65 17 144/72 (96) 96 Room Air 98.0 Physical Exam General: Alert, Oriented X3, Cooperative, moderate distress Abdomen: Normal bowel sounds, Soft, No tenderness, No hepatosplenomegaly, No masses Extremities: No clubbing, No cyanosis, No edema, Normal pulses, No tenderness/swelling Skin: Other (Rash sparing extensor surfaces, raised wheals with yellow crusting) Labs LABS INDICATION: Reason: exfoliative widespread dermatitis with monocytosis evaluate tumor / Spl. Instructions: IV OMNI 300 75 MLS AND PO OMNI 240 50 MLS / History: TECHNIQUE: Multi-detector row CT images were acquired from the thoracic inlet through the ischial tuberosities with the use of IV contrast. Sagittal and coronal images were acquired from the transaxial data. All CT scans performed at this facility utilize dose optimization techniques as appropriate to the exam, including the following: Automated exposure control and adjustment of the mA and/or KV according to patient size (this includes techniques or standardized protocols for targeted exams where dose is indication/reason for exam). IV CONTRAST: Administered ORAL CONTRAST: Administered COMPARISON: None FINDINGS: CHEST: CARDIOVASCULAR: Unremarkable MEDIASTINUM & KAREY: No adenopathy or masses. LUNGS: No pulmonary infiltrate, nodule, or other focal abnormality. PLEURAL SPACE: No pleural effusions or pneumothorax. OSSEOUS & SOFT TISSUE: Unremarkable ABDOMEN/PELVIS: LIVER: Unremarkable BILIARY SYSTEM: Gallbladder is unremarkable. Bile ducts are not dilated. PANCREAS: Unremarkable SPLEEN: Unremarkable ADRENALS: Unremarkable KIDNEYS & URETERS: Unremarkable BLADDER: Unremarkable REPRODUCTIVE ORGANS: Unremarkable GASTROINTESTINAL: Extensive colonic diverticulosis. The stomach, small bowel, and colon are otherwise unremarkable. The appendix is normal. MESENTERY/PERITONEUM/RETROPERITONEUM: Unremarkable VASCULAR: Unremarkable LYMPH NODES: No adenopathy OSSEOUS & SOFT TISSUES: Unremarkable IMPRESSION: Essentially unremarkable CT of the chest, abdomen, and pelvis with no evidence of malignancy. Electronically signed by: Yael Cortez MD (12/18/2020 10:08 AM) [id number] DICTATED and SIGNED BY: YAEL CORTEZ MD DATE: 12/18/20 [id number] Laboratory Tests Test 12/17/20 11:43 12/17/20 16:47 12/17/20 20:19 12/18/20 07:55 Glucose (Fingerstick) 85 mg/dL (70-99) 121 mg/dL (70-99) 116 mg/dL (70-99) 82 mg/dL (70-99) Assessment and Plan Assessmemt and Plan Problems Medical Problems: (1) Cellulitis Status: Acute (2) Rash and nonspecific skin eruption Status: Acute Comment Review of Relevant I have reviewed the following items jennifer (where applicable) has been applied. Labs Laboratory Tests Test 12/16/20 16:19 12/16/20 20:55 12/17/20 07:39 12/17/20 11:43 Glucose (Fingerstick) 165 mg/dL (70-99) 88 mg/dL (70-99) 77 mg/dL (70-99) 85 mg/dL (70-99) Test 12/17/20 16:47 12/17/20 20:19 12/18/20 07:55 Glucose (Fingerstick) 121 mg/dL (70-99) 116 mg/dL (70-99) 82 mg/dL (70-99) Laboratory Tests Test 12/17/20 11:43 12/17/20 16:47 12/17/20 20:19 12/18/20 07:55 Glucose (Fingerstick) 85 mg/dL (70-99) 121 mg/dL (70-99) 116 mg/dL (70-99) 82 mg/dL (70-99) Medications Current Medications Vancomycin HCl 1.25 gm/Sodium Chloride 250 ml @ 166.667 mls/hr 1X ONCE IV Last administered on 12/15/20at 03:02; Start 12/15/20 at 02:00; Stop 12/15/20 at 03:29; Status DC Montelukast Sodium (Singulair) 10 mg QHS PO Last administered on 12/17/20at 20:52; Start 12/15/20 at 21:00 Montelukast Sodium (Singulair) 10 mg 1X ONCE PO Last administered on 12/15/20at 09:11; Start 12/15/20 at 07:45; Stop 12/15/20 at 07:46; Status DC Diphenhydramine HCl (Benadryl) 25 mg PRN Q6HRS PRN PO ITCHING Last administered on 12/17/20at 08:34; Start 12/15/20 at 09:00 Methylprednisolone Sodium Succinate (SOLU-Medrol 40MG VIAL) 40 mg Q8HRS IV ; Start 12/15/20 at 14:00; Stop 12/15/20 at 11:15; Status DC Famotidine (Pepcid) 20 mg BID PO Last administered on 12/17/20at 20:51; Start 12/15/20 at 09:00 Prednisone (Prednisone) 40 mg DAILY PO Last administered on 12/17/20at 08:36; Start 12/15/20 at 11:30 Acetaminophen (Tylenol) 650 mg PRN Q6HRS PRN PO MILD PAIN / TEMP > 100.3'F Last administered on 12/16/20at 17:01; Start 12/15/20 at 21:00 Insulin Human Lispro (HumaLOG) 0-9 UNITS TIDWMEALS SQ Last administered on 12/16/20at 17:07; Start 12/16/20 at 08:00 Dextrose (Dextrose 50%-Water Syringe) 12.5 gm PRN Q15MIN PRN IV SEE COMMENTS; Start 12/15/20 at 22:00 Doxycycline Hyclate (Vibra-Tab) 100 mg BID PO Last administered on 12/17/20at 20:52; Start 12/15/20 at 22:00 Cephalexin HCl (Keflex) 500 mg BID PO Last administered on 12/17/20at 20:52; Start 12/16/20 at 09:00 Hydralazine HCl (Apresoline Inj) 10 mg PRN Q4HRS PRN IVP ELEVATED BP, SEE COMMENTS; Start 12/16/20 at 16:00; Stop 12/16/20 at 17:57; Status DC Hydralazine HCl (Apresoline) 10 mg PRN TID PRN PO FOR SBP > 160 Last administered on 12/17/20at 20:52; Start 12/16/20 at 18:00 Amlodipine Besylate (Norvasc) 5 mg DAILY PO Last administered on 12/17/20at 15:40; Start 12/17/20 at 14:30 Multi-Ingredient Ointment (Hydrocerin, Eucerin Cream) 1 dung PRN Q1HR PRN TP DRY SKIN / SCALING Last administered on 12/17/20at 20:53; Start 12/17/20 at 15:15 Triamcinolone Acetonide (Kenalog 0.1%) 1 dung TID TP Last administered on 12/17/20at 20:53; Start 12/17/20 at 21:00 Iohexol (Omnipaque 300 Mg/ml) 75 ml 1X ONCE IV ; Start 12/18/20 at 08:00; Stop 12/18/20 at 08:01; Status DC Iohexol (Omnipaque 240 Mg/ml) 50 ml 1X ONCE PO ; Start 12/18/20 at 08:00; Stop 12/18/20 at 08:01; Status DC Info (CONTRAST GIVEN -- Rx MONITORING) 1 each PRN DAILY PRN MC SEE COMMENTS; Start 12/18/20 at 08:00; Stop 12/20/20 at 07:59 Active Scripts Active Vitals/I & O Vital Sign - Last 24 Hours 12/17/20 12/17/20 12/17/20 12/17/20 11:39 15:16 15:40 18:36 Temp 98.1 98.4 98.1 98.1 98.4 98.1 Pulse 86 94 94 81 Resp 20 18 22 B/P (MAP) 180/88 (118) 145/84 (104) 145/84 182/84 (116) Pulse Ox 99 98 98 O2 Delivery Room Air Room Air Room Air 12/17/20 12/17/20 12/17/20 12/18/20 19:45 20:52 22:57 02:40 Temp 98.0 98.0 98.0 98.0 Pulse 81 78 65 Resp 22 17 B/P (MAP) 182/84 170/81 (110) 144/72 (96) Pulse Ox 99 96 O2 Delivery Room Air Room Air Room Air Intake and Output 12/17/20 12/17/20 12/18/20 15:00 23:00 07:00 Intake Total 1020 ml 1250 ml Balance 1020 ml 1250 ml Justicifation of Admission Dx: Justifications for Admission: Justification of Admission Dx: Yes Cellulitis: Cellulitis MAMADOU PETERSON MD Dec 18, 2020 08:06
[2020-12-18 08:20] LABS: BASO # 0.1 x10^3/uL (0.0-0.2); BASO % 1 % (0-3); EOS # 0.1 x10^3/uL (0.0-0.7); EOS % 2 % (0-3); HEMATOCRIT 39.8 % (39.0-53.0); HEMOGLOBIN 13.1 g/dL (13.0-17.5); LYMPH # 1.8 x10^3/uL (1.0-4.8); LYMPH % 32 % (24-48); MEAN CORPUSCULAR HEMOGLOBIN 28 pg (25-35); MEAN CORPUSCULAR HGB CONC 33 g/dL (31-37); MEAN CORPUSCULAR VOLUME 86 fL (79-100); MONO # 0.5 x10^3/uL (0.0-1.1); MONO % 9 % (0-9); NEUT # 3.2 x10^3/uL (1.8-7.7); NEUT % 56 % (31-73); PLATELET COUNT 232 x10^3/uL (140-400); RED BLOOD COUNT 4.63 x10^6/uL (4.30-5.70); RED CELL DISTRIBUTION WIDTH 14.2 % (11.5-14.5); WHITE BLOOD COUNT 5.8 x10^3/uL (4.0-11.0)
[2020-12-18 08:53] LABS: ALBUMIN 3.2 g/dL (3.4-5.0); ALBUMIN/GLOBULIN RATIO 0.9 (1.0-1.7); C-REACTIVE PROTEIN 1.5 mg/L (0-3.3); CALCIUM 8.6 mg/dL (8.5-10.1); CREATININE 0.9 mg/dL (0.7-1.3); GFR 101.2; POTASSIUM 3.8 mmol/L (3.5-5.1); TOTAL BILIRUBIN 1.1 mg/dL (0.2-1.0); TOTAL PROTEIN 6.8 g/dL (6.4-8.2)
[2020-12-18] MEDS: CEPHALEXIN 250 MG CAPSULE. PO SCH ×2 (09:04→20:53)
[2020-12-18] MEDS: predniSONE 20 MG TABLET PO SCH (09:04)
[2020-12-18] MEDS: DOXYCYCLINE HYCLATE 100 MG TABLET PO SCH ×2 (09:04→20:53)
[2020-12-18] MEDS: FAMOTIDINE 20 MG TABLET. PO SCH ×2 (09:05→20:53)
[2020-12-18] MEDS: TRIAMCINOLONE ACETONIDE 0.1% TOPICAL CREAM 15GM TUBE. TP SCH ×3 (09:05→20:53)
[2020-12-18] MEDS: amLODIPine BESYLATE 5 MG TABLET PO SCH (09:05)
--- NOTE | 2020-12-18 10:00 | NUR ---
Wound Care Pt seen for wound care consult re: full body rash. Pt assessed, has areas of dry, reddened, flaky rash over arms and legs, arms with several areas of dry splitting skin. No open wounds noted, pt would benefit from continued Eucerin cream prn multiple times/day. Will defer to ID for further orders, wound care will sign off at this time.
--- NOTE | 2020-12-18 10:10 | RAD ---
EXAM: CT Chest, Abdomen, and Pelvis with IV contrast INDICATION: Reason: exfoliative widespread dermatitis with monocytosis evaluate tumor / Spl. Instruct ions: IV OMNI 300 75 MLS AND PO OMNI 240 50 MLS / History: TECHNIQUE: Multi-detector row CT images were acquired from the thoracic inlet through the ischial tu berosities with the use of IV contrast. Sagittal and coronal images were acquired from the transaxial data. All CT scans performed at this facility utilize dose optimization techniques as appropriate to the exam, including the following: Automated exposure control and adjustment of the mA and/or KV acc ording to patient size (this includes techniques or standardized protocols for targeted exams where d ose is indication/reason for exam). IV CONTRAST: Administered ORAL CONTRAST: Administered COMPARISON: None FINDINGS: CHEST: CARDIOVASCULAR: Unremarkable MEDIASTINUM & KAREY: No adenopathy or masses. LUNGS: No pulmonary infiltrate, nodule, or other focal abnormality. PLEURAL SPACE: No pleural effusions or pneumothorax. OSSEOUS & SOFT TISSUE: Unremarkable ABDOMEN/PELVIS: LIVER: Unremarkable BILIARY SYSTEM: Gallbladder is unremarkable. Bile ducts are not dilated. PANCREAS: Unremarkable SPLEEN: Unremarkable ADRENALS: Unremarkable KIDNEYS & URETERS: Unremarkable BLADDER: Unremarkable REPRODUCTIVE ORGANS: Unremarkable GASTROINTESTINAL: Extensive colonic diverticulosis. The stomach, small bowel, and colon are otherwise unremarkable. The appendix is normal. MESENTERY/PERITONEUM/RETROPERITONEUM: Unremarkable VASCULAR: Unremarkable LYMPH NODES: No adenopathy OSSEOUS & SOFT TISSUES: Unremarkable IMPRESSION: Essentially unremarkable CT of the chest, abdomen, and pelvis with no evidence of malignancy. Electronically signed by: Ratna Cortez MD (12/18/2020 10:08 AM) [id number]
--- NOTE | 2020-12-18 10:28 | NUR ---
SS following up with discharge planning. SS reviewed pt chart and discussed with pt RN and physician. Pt is currently on room air. Pt continues to have skin rash. ID consulted this morning. Pt is self pay. Discharge plan is to home when medically ready. SS will continue to follow for discharge planning.
[2020-12-18 10:58] VITALS: BP 135/76
--- NOTE | 2020-12-18 12:04 | PDOC2 ---
CONSULT Date of Consult Date of Consult DATE: 12/18/20 TIME: 11:56 Reason for Consult Reason for Consult: DERMATITIS Referring Physician Referring Physician: DR Reardon Identification/Chief Complaint Chief Complaint RASH History of Present Illness Reason for Visit: 25 year old male with past medical history of diabetes mellitus, diet- controlled, asthma, morbid obesity, hypertension presented with complaints of rash bilateral upper extremity and upper torso and abdomen for 1 month. He was seen in ER on 12/08/2020 at which time he received IV Solu-Medrol with clindamycin. His rash got worse. Rashes pruritic. He received a dose of vancomycin. Currently is on Keflex, doxycycline, triamcinolone and steroids. White count remains normal though he has eosinophilia. Patient has abnormal LFTs.Denies taking any new medication around the time of new onset of rash. Patient feels a little better. Denies any fevers. Denies chills, nausea, vomiting, diarrhea, abdominal pain, worsening shortness of breath or cough. Denies any oral sores or symptoms. 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[employer] Sexually active with same partner No history of STDs or hepatitis <1 pack per day ALCOHOL: none Drugs: None Lives: Alone Current Problem List Problem List Problems Medical Problems: (1) Cellulitis Status: Acute (2) Rash and nonspecific skin eruption Status: Acute Current Medications Current Medications Current Medications Vancomycin HCl 1.25 gm/Sodium Chloride 250 ml @ 166.667 mls/hr 1X ONCE IV Last administered on 12/15/20at 03:02; Start 12/15/20 at 02:00; Stop 12/15/20 at 03:29; Status DC Montelukast Sodium (Singulair) 10 mg QHS PO Last administered on 12/17/20at 20:52; Start 12/15/20 at 21:00 Montelukast Sodium (Singulair) 10 mg 1X ONCE PO Last administered on 12/15/20at 09:11; Start 12/15/20 at 07:45; Stop 12/15/20 at 07:46; Status DC Diphenhydramine HCl (Benadryl) 25 mg PRN Q6HRS PRN PO ITCHING Last administered on 12/17/20at 08:34; Start 12/15/20 at 09:00 Methylprednisolone Sodium Succinate (SOLU-Medrol 40MG VIAL) 40 mg Q8HRS IV ; Start 12/15/20 at 14:00; Stop 12/15/20 at 11:15; Status DC Famotidine (Pepcid) 20 mg BID PO Last administered on 12/18/20at 09:05; Start 12/15/20 at 09:00 Prednisone (Prednisone) 40 mg DAILY PO Last administered on 12/18/20at 09:04; Start 12/15/20 at 11:30 Acetaminophen (Tylenol) 650 mg PRN Q6HRS PRN PO MILD PAIN / TEMP > 100.3'F Last administered on 12/16/20at 17:01; Start 12/15/20 at 21:00 Insulin Human Lispro (HumaLOG) 0-9 UNITS TIDWMEALS SQ Last administered on 12/16/20at 17:07; Start 12/16/20 at 08:00 Dextrose (Dextrose 50%-Water Syringe) 12.5 gm PRN Q15MIN PRN IV SEE COMMENTS; Start 12/15/20 at 22:00 Doxycycline Hyclate (Vibra-Tab) 100 mg BID PO Last administered on 12/18/20at 09:04; Start 12/15/20 at 22:00 Cephalexin HCl (Keflex) 500 mg BID PO Last administered on 12/18/20at 09:04; Start 12/16/20 at 09:00 Hydralazine HCl (Apresoline Inj) 10 mg PRN Q4HRS PRN IVP ELEVATED BP, SEE COMMENTS; Start 12/16/20 at 16:00; Stop 12/16/20 at 17:57; Status DC Hydralazine HCl (Apresoline) 10 mg PRN TID PRN PO FOR SBP > 160 Last administered on 12/17/20at 20:52; Start 12/16/20 at 18:00 Amlodipine Besylate (Norvasc) 5 mg DAILY PO Last administered on 12/18/20at 09:05; Start 12/17/20 at 14:30 Multi-Ingredient Ointment (Hydrocerin, Eucerin Cream) 1 dung PRN Q1HR PRN TP DRY SKIN / SCALING Last administered on 12/17/20at 20:53; Start 12/17/20 at 15:15 Triamcinolone Acetonide (Kenalog 0.1%) 1 dung TID TP Last administered on 12/18/20at 09:05; Start 12/17/20 at 21:00 Iohexol (Omnipaque 300 Mg/ml) 75 ml 1X ONCE IV Last administered on 12/18/20at 08:00; Start 12/18/20 at 08:00; Stop 12/18/20 at 08:01; Status DC Iohexol (Omnipaque 240 Mg/ml) 50 ml 1X ONCE PO Last administered on 12/18/20at 08:26; Start 12/18/20 at 08:00; Stop 12/18/20 at 08:01; Status DC Info (CONTRAST GIVEN -- Rx MONITORING) 1 each PRN DAILY PRN MC SEE COMMENTS; Start 12/18/20 at 08:00; Stop 12/20/20 at 07:59 Active Scripts Active Allergies Allergies: Coded Allergies: Penicillins (Verified Allergy, Intermediate, 12/16/20) Physical Exam General: Alert, Oriented X3 HEENT: Atraumatic, PERRLA, EOMI, Mucous membr. moist/pink Lungs: Clear to auscultation Heart: Normal S1, Normal S2 Abdomen: Normal bowel sounds, Soft, No tenderness Extremities: No edema, Other Skin: Other (Diffuse maculopapular rash with dry scaly skin mainly over both up per extremity, neck, upper chest and abdomen) Neuro: Normal speech, Strength at 5/5 X4 ext, Normal tone, Cranial nerves 3-12 NL Psych/Mental Status: Mental status NL, Mood NL MUSCULOSKELETAL: Full range of motion without pain Vitals VITALS Vital Signs Date Time Temp Pulse Resp B/P (MAP) Pulse Ox O2 Delivery O2 Flow Rate FiO2 12/18/20 10:58 97.9 81 16 135/76 (95) 98 Room Air 97.9 Labs Labs Laboratory Tests Test 12/16/20 16:19 12/16/20 20:55 12/17/20 07:39 12/17/20 11:43 Glucose (Fingerstick) 165 mg/dL (70-99) 88 mg/dL (70-99) 77 mg/dL (70-99) 85 mg/dL (70-99) Test 12/17/20 16:47 12/17/20 20:19 12/18/20 07:40 12/18/20 07:55 Glucose (Fingerstick) 121 mg/dL (70-99) 116 mg/dL (70-99) 82 mg/dL (70-99) White Blood Count 5.8 x10^3/uL (4.0-11.0) Red Blood Count 4.63 x10^6/uL (4.30-5.70) Hemoglobin 13.1 g/dL (13.0-17.5) Hematocrit 39.8 % (39.0-53.0) Mean Corpuscular Volume 86 fL (79-100) Mean Corpuscular Hemoglobin 28 pg (25-35) Mean Corpuscular Hemoglobin Concent 33 g/dL (31-37) Red Cell Distribution Width 14.2 % (11.5-14.5) Platelet Count 232 x10^3/uL (140-400) Neutrophils (%) (Auto) 56 % (31-73) Lymphocytes (%) (Auto) 32 % (24-48) Monocytes (%) (Auto) 9 % (0-9) Eosinophils (%) (Auto) 2 % (0-3) Basophils (%) (Auto) 1 % (0-3) Neutrophils # (Auto) 3.2 x10^3/uL (1.8-7.7) Lymphocytes # (Auto) 1.8 x10^3/uL (1.0-4.8) Monocytes # (Auto) 0.5 x10^3/uL (0.0-1.1) Eosinophils # (Auto) 0.1 x10^3/uL (0.0-0.7) Basophils # (Auto) 0.1 x10^3/uL (0.0-0.2) Erythrocyte Sedimentation Rate 10 (0-15) Sodium Level 144 mmol/L (136-145) Potassium Level 3.8 mmol/L (3.5-5.1) Chloride Level 105 mmol/L (98-107) Carbon Dioxide Level 32 mmol/L (21-32) Anion Gap 7 (6-14) Blood Urea Nitrogen 9 mg/dL (8-26) Creatinine 0.9 mg/dL (0.7-1.3) Estimated GFR (Cockcroft-Gault) 101.2 BUN/Creatinine Ratio 10 (6-20) Glucose Level 80 mg/dL (70-99) Calcium Level 8.6 mg/dL (8.5-10.1) Total Bilirubin 1.1 mg/dL (0.2-1.0) Aspartate Amino Transf (AST/SGOT) 33 U/L (15-37) Alanine Aminotransferase (ALT/SGPT) 64 U/L (16-63) Alkaline Phosphatase 59 U/L (46-116) C-Reactive Protein, Quantitative 1.5 mg/L (0-3.3) Total Protein 6.8 g/dL (6.4-8.2) Albumin 3.2 g/dL (3.4-5.0) Albumin/Globulin Ratio 0.9 (1.0-1.7) Vitamin B12 Level 575 pg/mL (247-911) Thyroid Stimulating Hormone (TSH) 3.210 uIU/mL (0.358-3.74) HIV (1&2) Antibody Screen Nonreactive (Nonreactive) Laboratory Tests Test 12/17/20 16:47 12/17/20 20:19 12/18/20 07:40 12/18/20 07:55 Glucose (Fingerstick) 121 mg/dL (70-99) 116 mg/dL (70-99) 82 mg/dL (70-99) White Blood Count 5.8 x10^3/uL (4.0-11.0) Red Blood Count 4.63 x10^6/uL (4.30-5.70) Hemoglobin 13.1 g/dL (13.0-17.5) Hematocrit 39.8 % (39.0-53.0) Mean Corpuscular Volume 86 fL (79-100) Mean Corpuscular Hemoglobin 28 pg (25-35) Mean Corpuscular Hemoglobin Concent 33 g/dL (31-37) Red Cell Distribution Width 14.2 % (11.5-14.5) Platelet Count 232 x10^3/uL (140-400) Neutrophils (%) (Auto) 56 % (31-73) Lymphocytes (%) (Auto) 32 % (24-48) Monocytes (%) (Auto) 9 % (0-9) Eosinophils (%) (Auto) 2 % (0-3) Basophils (%) (Auto) 1 % (0-3) Neutrophils # (Auto) 3.2 x10^3/uL (1.8-7.7) Lymphocytes # (Auto) 1.8 x10^3/uL (1.0-4.8) Monocytes # (Auto) 0.5 x10^3/uL (0.0-1.1) Eosinophils # (Auto) 0.1 x10^3/uL (0.0-0.7) Basophils # (Auto) 0.1 x10^3/uL (0.0-0.2) Erythrocyte Sedimentation Rate 10 (0-15) Sodium Level 144 mmol/L (136-145) Potassium Level 3.8 mmol/L (3.5-5.1) Chloride Level 105 mmol/L (98-107) Carbon Dioxide Level 32 mmol/L (21-32) Anion Gap 7 (6-14) Blood Urea Nitrogen 9 mg/dL (8-26) Creatinine 0.9 mg/dL (0.7-1.3) Estimated GFR (Cockcroft-Gault) 101.2 BUN/Creatinine Ratio 10 (6-20) Glucose Level 80 mg/dL (70-99) Calcium Level 8.6 mg/dL (8.5-10.1) Total Bilirubin 1.1 mg/dL (0.2-1.0) Aspartate Amino Transf (AST/SGOT) 33 U/L (15-37) Alanine Aminotransferase (ALT/SGPT) 64 U/L (16-63) Alkaline Phosphatase 59 U/L (46-116) C-Reactive Protein, Quantitative 1.5 mg/L (0-3.3) Total Protein 6.8 g/dL (6.4-8.2) Albumin 3.2 g/dL (3.4-5.0) Albumin/Globulin Ratio 0.9 (1.0-1.7) Vitamin B12 Level 575 pg/mL (247-911) Thyroid Stimulating Hormone (TSH) 3.210 uIU/mL (0.358-3.74) HIV (1&2) Antibody Screen Nonreactive (Nonreactive) Assessment/Plan Assessment/Plan Dermatitis Eosinophilia Asthma Diabetes mellitus diet controlled Tobaccoism Abnormal LFTs Morbid obesity Penicillin allergy with hives, tolerating cephalosporins well Recommendations Continue current antibiotics, keflex and doxycycline Continue local care Follow-up CT abdomen and pelvis Monitor labs and cultures Patient will need dermatology evaluation Optimal diabetes control Steroids per primary Follow-up infectious disease serology Discussed with nursing staff Q for allowing me to participate in this patient's care. If you have any questions do not hesitate to contact me. ROSA M MONTILLA MD Dec 18, 2020 12:04
[2020-12-18 14:15] VITALS: BP 159/81
[2020-12-18 15:22] LABS: RHEUMATOID FACTOR 36.6 IU/mL (0.0-13.9)
[2020-12-18 19:36] VITALS: BP 168/69
[2020-12-18] MEDS: MONTELUKAST SODIUM 10 MG TABLET. PO SCH (20:53)
[2020-12-18 22:49] VITALS: BP 158/82
[2020-12-19 03:39] VITALS: BP 145/73
[2020-12-19 07:55] VITALS: BP 144/95
[2020-12-19] MEDS: INSULIN LISPRO 300 UNITS/3 ML VIAL. SQ SCH (08:00)
--- NOTE | 2020-12-19 08:03 | PDOC ---
Infectious Disease Note Subjective: Subjective Patient feels much better today Rash Is improving Denies fever, nausea, vomiting, shortness of breath, diarrhea, abdominal pain, Otherwise as above Vital Signs: Vital Signs Vital Signs Date Time Temp Pulse Resp B/P (MAP) Pulse Ox O2 Delivery O2 Flow Rate FiO2 12/19/20 03:39 98.0 85 16 145/73 (97) 97 Room Air 98.0 Physical Exam: PHYSICAL EXAM General: Alert, Oriented X3 HEENT: Atraumatic, PERRLA, EOMI, Mucous membr. moist/pink Lungs: Clear to auscultation Heart: Normal S1, Normal S2 Abdomen: Normal bowel sounds, Soft, No tenderness Extremities: No edema, Other Skin: Other (Diffuse maculopapular rash with dry scaly skin mainly over both upper extremity, neck, upper chest and abdomen) Bilateral lower extremity multiple excoriations with hyperpigmentation present, no gross purulence, Neuro: Normal speech, Strength at 5/5 X4 ext, Normal tone, Cranial nerves 3-12 NL Psych/Mental Status: Mental status NL, Mood NL MUSCULOSKELETAL: Full range of motion without pain Medications: Inpatient Meds: Medications reviewed. Labs: Lab Laboratory Tests Test 12/18/20 12:03 12/18/20 17:03 12/18/20 20:41 Glucose (Fingerstick) 98 mg/dL (70-99) 128 mg/dL (70-99) 122 mg/dL (70-99) Objective: Assessment: Dermatitis improving etiology likely noninfectious. Eosinophilia Asthma Diabetes mellitus diet controlled Tobaccoism Abnormal LFTs Morbid obesity Penicillin allergy with hives, tolerating cephalosporins well Plan: Plan of Care Continue keflex and doxycycline for now Continue local care CT abdomen and pelvis noted Monitor labs and cultures Patient will need dermatology evaluation upon discharge as outpatient Optimal diabetes control Steroids per primary ROSA M MONTILLA MD Dec 19, 2020 08:03
[2020-12-19] MEDS: TRIAMCINOLONE ACETONIDE 0.1% TOPICAL CREAM 15GM TUBE. TP SCH (08:45)
[2020-12-19] MEDS: amLODIPine BESYLATE 5 MG TABLET PO SCH (08:45)
[2020-12-19] MEDS: predniSONE 20 MG TABLET PO SCH (08:45)
[2020-12-19] MEDS: DOXYCYCLINE HYCLATE 100 MG TABLET PO SCH (08:45)
[2020-12-19] MEDS: CEPHALEXIN 250 MG CAPSULE. PO SCH (08:45)
[2020-12-19] MEDS: FAMOTIDINE 20 MG TABLET. PO SCH (08:45)
--- NOTE | 2020-12-19 08:55 | PDOC ---
PROGRESS NOTES Date of Service: DATE: 12/19/20 TIME: 08:55 Chief Complaint Chief Complaint impression Rash - allergic dermatitis likely from multiple bedbug bites. Going on for greater than 1 months, will give steroids IV, benadryl, singulair. Alcohol spray to kill his bedbugs at home Cellulitis - in bilateral arms and legs due to excoriations. IV vancomycin initiated. rx PO doxycycline and keflex when improved Bedbug infestation - will search clothing. Advised on bedbug eradication strategies. Could prescribe permethrin on d/c, however with his skin condition this could worsen his rash. Asthma - prn nebs Diabetes-Type II - sliding scale Hypertension - will given prn hydralazine, has not been taking his home meds hiv neg screen plan FEN- ADA diet PPX - Ambulatory, low risk FULL CODE Dispo - inpatient for severe allergic reaction and severe cellulitis due to bedbug infestation ID CONSULT Dermatology consult as out patient YOHAN PENDING History of Present Illness History of Present Illness Mr Varghese is a 25 year old male w/ PMHx Asthma, Diabetes-Type II, Hypertension presents with a chief complaint of rash. Rash is diffuse in nature includes bilateral extremities torso and abdomen. Patient states rash is been ongoing for 1 month progressively becoming worse. Patient was seen in the emergency department 1 week ago placed on antibiotics. Rash is intensely pruritic, covering more than 60% of his body with crusting in multiple locations. He notes he has "ticks" in his bed. Notably the pictures of the insects he describe are actually bedbugs. I have educated him on this. Eosinophils 1.2x10^3, otherwise labs WNL. Admitted for further care. His rash has improved with steroids. Has improvement in his cellulitis, but does have a pocket on his right lower back that has been draining. No fluctuance. Vitals Vitals Vital Signs Date Time Temp Pulse Resp B/P (MAP) Pulse Ox O2 Delivery O2 Flow Rate FiO2 12/19/20 08:45 80 144/95 12/19/20 07:55 97.9 16 98 Room Air 97.9 Physical Exam Physical Exam General: Alert, Oriented X3 HEENT: Atraumatic, PERRLA, EOMI, Mucous membr. moist/pink Lungs: Clear to auscultation Heart: Normal S1, Normal S2 Abdomen: Normal bowel sounds, Soft, No tenderness Extremities: No edema, Other Skin: Other (Diffuse maculopapular rash with dry scaly skin mainly over both upper extremity, neck, upper chest and abdomen) Neuro: Normal speech, Strength at 5/5 X4 ext, Normal tone, Cranial nerves 3-12 NL Psych/Mental Status: Mental status NL, Mood NL MUSCULOSKELETAL: Full range of motion without pain General: Alert, Oriented X3, No acute distress Heart: Normal S1, Normal S2 Lungs: Clear Abdomen: Normal bowel sounds, Soft, No tenderness Extremities: No cyanosis, No edema, Other Skin: Other (Diffuse maculopapular rash with dry scaly skin mainly over both upper extremity, neck, upper chest and abdomen) Labs LABS Laboratory Tests Test 12/18/20 12:03 12/18/20 17:03 12/18/20 20:41 12/19/20 08:17 Glucose (Fingerstick) 98 mg/dL (70-99) 128 mg/dL (70-99) 122 mg/dL (70-99) 71 mg/dL (70-99) Assessment and Plan Assessmemt and Plan Problems Medical Problems: (1) Cellulitis Status: Acute (2) Rash and nonspecific skin eruption Status: Acute Comment Review of Relevant I have reviewed the following items jennifer (where applicable) has been applied. Labs Laboratory Tests Test 12/17/20 11:43 12/17/20 16:47 12/17/20 20:19 12/18/20 07:40 Glucose (Fingerstick) 85 mg/dL (70-99) 121 mg/dL (70-99) 116 mg/dL (70-99) White Blood Count 5.8 x10^3/uL (4.0-11.0) Red Blood Count 4.63 x10^6/uL (4.30-5.70) Hemoglobin 13.1 g/dL (13.0-17.5) Hematocrit 39.8 % (39.0-53.0) Mean Corpuscular Volume 86 fL (79-100) Mean Corpuscular Hemoglobin 28 pg (25-35) Mean Corpuscular Hemoglobin Concent 33 g/dL (31-37) Red Cell Distribution Width 14.2 % (11.5-14.5) Platelet Count 232 x10^3/uL (140-400) Neutrophils (%) (Auto) 56 % (31-73) Lymphocytes (%) (Auto) 32 % (24-48) Monocytes (%) (Auto) 9 % (0-9) Eosinophils (%) (Auto) 2 % (0-3) Basophils (%) (Auto) 1 % (0-3) Neutrophils # (Auto) 3.2 x10^3/uL (1.8-7.7) Lymphocytes # (Auto) 1.8 x10^3/uL (1.0-4.8) Monocytes # (Auto) 0.5 x10^3/uL (0.0-1.1) Eosinophils # (Auto) 0.1 x10^3/uL (0.0-0.7) Basophils # (Auto) 0.1 x10^3/uL (0.0-0.2) Erythrocyte Sedimentation Rate 10 (0-15) Sodium Level 144 mmol/L (136-145) Potassium Level 3.8 mmol/L (3.5-5.1) Chloride Level 105 mmol/L (98-107) Carbon Dioxide Level 32 mmol/L (21-32) Anion Gap 7 (6-14) Blood Urea Nitrogen 9 mg/dL (8-26) Creatinine 0.9 mg/dL (0.7-1.3) Estimated GFR (Cockcroft-Gault) 101.2 BUN/Creatinine Ratio 10 (6-20) Glucose Level 80 mg/dL (70-99) Calcium Level 8.6 mg/dL (8.5-10.1) Total Bilirubin 1.1 mg/dL (0.2-1.0) Aspartate Amino Transf (AST/SGOT) 33 U/L (15-37) Alanine Aminotransferase (ALT/SGPT) 64 U/L (16-63) Alkaline Phosphatase 59 U/L (46-116) C-Reactive Protein, Quantitative 1.5 mg/L (0-3.3) Total Protein 6.8 g/dL (6.4-8.2) Albumin 3.2 g/dL (3.4-5.0) Albumin/Globulin Ratio 0.9 (1.0-1.7) Vitamin B12 Level 575 pg/mL (247-911) Thyroid Stimulating Hormone (TSH) 3.210 uIU/mL (0.358-3.74) Rheumatoid Factor 36.6 IU/mL (0.0-13.9) Treponema pallidum Antibody Nonreactive (Nonreactive) HIV (1&2) Antibody Screen Nonreactive (Nonreactive) Test 12/18/20 07:55 12/18/20 12:03 12/18/20 17:03 12/18/20 20:41 Glucose (Fingerstick) 82 mg/dL (70-99) 98 mg/dL (70-99) 128 mg/dL (70-99) 122 mg/dL (70-99) Test 12/19/20 08:17 Glucose (Fingerstick) 71 mg/dL (70-99) Laboratory Tests Test 12/18/20 12:03 12/18/20 17:03 12/18/20 20:41 12/19/20 08:17 Glucose (Fingerstick) 98 mg/dL (70-99) 128 mg/dL (70-99) 122 mg/dL (70-99) 71 mg/dL (70-99) Medications Current Medications Vancomycin HCl 1.25 gm/Sodium Chloride 250 ml @ 166.667 mls/hr 1X ONCE IV Last administered on 12/15/20at 03:02; Start 12/15/20 at 02:00; Stop 12/15/20 at 03:29; Status DC Montelukast Sodium (Singulair) 10 mg QHS PO Last administered on 12/18/20at 20:53; Start 12/15/20 at 21:00 Montelukast Sodium (Singulair) 10 mg 1X ONCE PO Last administered on 12/15/20at 09:11; Start 12/15/20 at 07:45; Stop 12/15/20 at 07:46; Status DC Diphenhydramine HCl (Benadryl) 25 mg PRN Q6HRS PRN PO ITCHING Last administered on 12/17/20at 08:34; Start 12/15/20 at 09:00 Methylprednisolone Sodium Succinate (SOLU-Medrol 40MG VIAL) 40 mg Q8HRS IV ; Start 12/15/20 at 14:00; Stop 12/15/20 at 11:15; Status DC Famotidine (Pepcid) 20 mg BID PO Last administered on 12/19/20at 08:45; Start 12/15/20 at 09:00 Prednisone (Prednisone) 40 mg DAILY PO Last administered on 12/19/20at 08:45; Start 12/15/20 at 11:30 Acetaminophen (Tylenol) 650 mg PRN Q6HRS PRN PO MILD PAIN / TEMP > 100.3'F Last administered on 12/16/20at 17:01; Start 12/15/20 at 21:00 Insulin Human Lispro (HumaLOG) 0-9 UNITS TIDWMEALS SQ Last administered on 12/16/20at 17:07; Start 12/16/20 at 08:00 Dextrose (Dextrose 50%-Water Syringe) 12.5 gm PRN Q15MIN PRN IV SEE COMMENTS; Start 12/15/20 at 22:00 Doxycycline Hyclate (Vibra-Tab) 100 mg BID PO Last administered on 12/19/20at 08:45; Start 12/15/20 at 22:00 Cephalexin HCl (Keflex) 500 mg BID PO Last administered on 12/19/20at 08:45; Start 12/16/20 at 09:00 Hydralazine HCl (Apresoline Inj) 10 mg PRN Q4HRS PRN IVP ELEVATED BP, SEE COMMENTS; Start 12/16/20 at 16:00; Stop 12/16/20 at 17:57; Status DC Hydralazine HCl (Apresoline) 10 mg PRN TID PRN PO FOR SBP > 160 Last administered on 12/17/20at 20:52; Start 12/16/20 at 18:00 Amlodipine Besylate (Norvasc) 5 mg DAILY PO Last administered on 12/19/20at 08:45; Start 12/17/20 at 14:30 Multi-Ingredient Ointment (Hydrocerin, Eucerin Cream) 1 dung PRN Q1HR PRN TP DRY SKIN / SCALING Last administered on 12/17/20at 20:53; Start 12/17/20 at 15:15 Triamcinolone Acetonide (Kenalog 0.1%) 1 dung TID TP Last administered on 12/19/20at 08:45; Start 12/17/20 at 21:00 Iohexol (Omnipaque 300 Mg/ml) 75 ml 1X ONCE IV Last administered on 12/18/20at 08:00; Start 12/18/20 at 08:00; Stop 12/18/20 at 08:01; Status DC Iohexol (Omnipaque 240 Mg/ml) 50 ml 1X ONCE PO Last administered on 12/18/20at 08:26; Start 12/18/20 at 08:00; Stop 12/18/20 at 08:01; Status DC Info (CONTRAST GIVEN -- Rx MONITORING) 1 each PRN DAILY PRN MC SEE COMMENTS; Start 12/18/20 at 08:00; Stop 12/20/20 at 07:59 Active Scripts Active Vitals/I & O Vital Sign - Last 24 Hours 12/18/20 12/18/20 12/18/20 12/18/20 09:05 10:58 14:15 19:36 Temp 97.9 98.3 98.3 97.9 98.3 98.3 Pulse 73 81 92 83 Resp 16 16 20 B/P (MAP) 138/63 135/76 (95) 159/81 (107) 168/69 (102) Pulse Ox 98 98 94 O2 Delivery Room Air Room Air Room Air 12/18/20 12/18/20 12/19/20 12/19/20 20:00 22:49 03:39 07:55 Temp 98.1 98.0 97.9 98.1 98.0 97.9 Pulse 80 85 80 Resp 18 16 16 B/P (MAP) 158/82 (107) 145/73 (97) 144/95 (111) Pulse Ox 98 97 98 O2 Delivery Room Air Room Air Room Air Room Air 12/19/20 08:45 Pulse 80 B/P (MAP) 144/95 Intake and Output 12/18/20 12/18/20 12/19/20 15:00 23:00 07:00 Intake Total 300 ml 0 ml Balance 300 ml 0 ml Justicifation of Admission Dx: Justifications for Admission: Justification of Admission Dx: Yes Cellulitis: Cellulitis MAMADOU PETERSON MD Dec 19, 2020 08:55
--- NOTE | 2020-12-19 09:48 | PDOC3 ---
Discharge Summary Date of Admission: Dec 17, 2020 Date of Discharge: Dec 19, 2020 Follow-Up: 3-5 days Admitting Diagnosis comment: Chief Complaint Chief Complaint impression Rash - allergic dermatitis likely from multiple bedbug bites. Going on for greater than 1 months, will give steroids IV, benadryl, singulair. Alcohol spray to kill his bedbugs at home Cellulitis - in bilateral arms and legs due to excoriations. IV vancomycin initiated. rx PO doxycycline and keflex when improved Bedbug infestation - will search clothing. Advised on bedbug eradication strategies. Could prescribe permethrin on d/c, however with his skin condition this could worsen his rash. Asthma - prn nebs Diabetes-Type II - sliding scale Hypertension - will given prn hydralazine, has not been taking his home meds hiv neg screen plan FEN- ADA diet PPX - Ambulatory, low risk FULL CODE Dispo - inpatient for severe allergic reaction and severe cellulitis due to bedbug infestation ID CONSULT Dermatology consult as out patient see pcp this week susy YOHAN PENDING d/c planning 36 min History of Present Illness History of Present Illness Mr Varghese is a 25 year old male w/ PMHx Asthma, Diabetes-Type II, Hyper tension presents with a chief complaint of rash. Rash is diffuse in nature includes bilateral extremities torso and abdomen. Patient states rash is been ongoing for 1 month progressively becoming worse. Patient was seen in the emergency department 1 week ago placed on antibiotics. Rash is intensely pruritic, covering more than 60% of his body with crusting in multiple locations. He notes he has "ticks" in his bed. Notably the pictures of the insects he describe are actually bedbugs. I have educated him on this. Eosinophils 1.2x10^3, otherwise labs WNL. Admitted for further care. His rash has improved with steroids. Has improvement in his cellulitis, but does have a pocket on his right lower back that has been draining. No fluctuance. Vitals Vitals Vital Signs Date Time Temp Pulse Resp B/P (MAP) Pulse Ox O2 Delivery O2 Flow Rate FiO2 12/19/20 08:45 80 144/95 12/19/20 07:55 97.9 16 98 Room Air 97.9 Physical Exam Physical Exam General: Alert, Oriented X3 HEENT: Atraumatic, PERRLA, EOMI, Mucous membr. moist/pink Lungs: Clear to auscultation Heart: Normal S1, Normal S2 Abdomen: Normal bowel sounds, Soft, No tenderness Extremities: No edema, Other Skin: Other (Diffuse maculopapular rash with dry scaly skin mainly over both upper extremity, neck, upper chest and abdomen) Neuro: Normal speech, Strength at 5/5 X4 ext, Normal tone, Cranial nerves 3-12 NL Psych/Mental Status: Mental status NL, Mood NL MUSCULOSKELETAL: Full range of motion without pain General: Alert, Oriented X3, No acute distress Heart: Normal S1, Normal S2 Lungs: Clear Abdomen: Normal bowel sounds, Soft, No tenderness Extremities: No cyanosis, No edema, Other Skin: Other (Diffuse maculopapular rash with dry scaly skin mainly over both upper extremity, neck, upper chest and abdomen) Labs LABS Laboratory Tests Test 12/18/20 12:03 12/18/20 17:03 12/18/20 20:41 12/19/20 08:17 Glucose (Fingerstick) 98 mg/dL (70-99) 128 mg/dL (70-99) 122 mg/dL (70-99) 71 mg/dL (70-99) FINAL DIAGNOSIS Problems Medical Problems: (1) Cellulitis Status: Acute (2) Rash and nonspecific skin eruption Status: Acute Brief Hospital Course Mr. Tanner is a 25 old [sex] who presented with [ cellulitis, rash] CONDITION AT DISCHARGE: Improved Discharge Medications Current Medications Vancomycin HCl 1.25 gm/Sodium Chloride 250 ml @ 166.667 mls/hr 1X ONCE IV Last administered on 12/15/20at 03:02; Start 12/15/20 at 02:00; Stop 12/15/20 at 03:29; Status DC Montelukast Sodium (Singulair) 10 mg QHS PO Last administered on 12/18/20at 20:53; Start 12/15/20 at 21:00 Montelukast Sodium (Singulair) 10 mg 1X ONCE PO Last administered on 12/15/20at 09:11; Start 12/15/20 at 07:45; Stop 12/15/20 at 07:46; Status DC Diphenhydramine HCl (Benadryl) 25 mg PRN Q6HRS PRN PO ITCHING Last administered on 12/17/20at 08:34; Start 12/15/20 at 09:00 Methylprednisolone Sodium Succinate (SOLU-Medrol 40MG VIAL) 40 mg Q8HRS IV ; Start 12/15/20 at 14:00; Stop 12/15/20 at 11:15; Status DC Famotidine (Pepcid) 20 mg BID PO Last administered on 12/19/20at 08:45; Start 12/15/20 at 09:00 Prednisone (Prednisone) 40 mg DAILY PO Last administered on 12/19/20at 08:45; Start 12/15/20 at 11:30 Acetaminophen (Tylenol) 650 mg PRN Q6HRS PRN PO MILD PAIN / TEMP > 100.3'F Last administered on 12/16/20at 17:01; Start 12/15/20 at 21:00 Insulin Human Lispro (HumaLOG) 0-9 UNITS TIDWMEALS SQ Last administered on 12/16/20at 17:07; Start 12/16/20 at 08:00 Dextrose (Dextrose 50%-Water Syringe) 12.5 gm PRN Q15MIN PRN IV SEE COMMENTS; Start 12/15/20 at 22:00 Doxycycline Hyclate (Vibra-Tab) 100 mg BID PO Last administered on 12/19/20at 08:45; Start 12/15/20 at 22:00 Cephalexin HCl (Keflex) 500 mg BID PO Last administered on 12/19/20at 08:45; Start 12/16/20 at 09:00 Hydralazine HCl (Apresoline Inj) 10 mg PRN Q4HRS PRN IVP ELEVATED BP, SEE COMMENTS; Start 12/16/20 at 16:00; Stop 12/16/20 at 17:57; Status DC Hydralazine HCl (Apresoline) 10 mg PRN TID PRN PO FOR SBP > 160 Last administered on 12/17/20at 20:52; Start 12/16/20 at 18:00 Amlodipine Besylate (Norvasc) 5 mg DAILY PO Last administered on 12/19/20at 08:45; Start 12/17/20 at 14:30 Multi-Ingredient Ointment (Hydrocerin, Eucerin Cream) 1 dung PRN Q1HR PRN TP DRY SKIN / SCALING Last administered on 12/17/20at 20:53; Start 12/17/20 at 15:15 Triamcinolone Acetonide (Kenalog 0.1%) 1 dung TID TP Last administered on 12/19/20at 08:45; Start 12/17/20 at 21:00 Iohexol (Omnipaque 300 Mg/ml) 75 ml 1X ONCE IV Last administered on 12/18/20at 08:00; Start 12/18/20 at 08:00; Stop 12/18/20 at 08:01; Status DC Iohexol (Omnipaque 240 Mg/ml) 50 ml 1X ONCE PO Last administered on 12/18/20at 08:26; Start 12/18/20 at 08:00; Stop 12/18/20 at 08:01; Status DC Info (CONTRAST GIVEN -- Rx MONITORING) 1 each PRN DAILY PRN MC SEE COMMENTS; Start 12/18/20 at 08:00; Stop 12/20/20 at 07:59 Active Scripts Active Vital Signs Vital Signs Date Time Temp Pulse Resp B/P (MAP) Pulse Ox O2 Delivery O2 Flow Rate FiO2 12/19/20 08:45 80 144/95 12/19/20 08:00 Room Air 12/19/20 07:55 97.9 16 98 97.9 Labs Laboratory Tests Test 12/17/20 11:43 12/17/20 16:47 12/17/20 20:19 12/18/20 07:40 Glucose (Fingerstick) 85 mg/dL (70-99) 121 mg/dL (70-99) 116 mg/dL (70-99) White Blood Count 5.8 x10^3/uL (4.0-11.0) Red Blood Count 4.63 x10^6/uL (4.30-5.70) Hemoglobin 13.1 g/dL (13.0-17.5) Hematocrit 39.8 % (39.0-53.0) Mean Corpuscular Volume 86 fL (79-100) Mean Corpuscular Hemoglobin 28 pg (25-35) Mean Corpuscular Hemoglobin Concent 33 g/dL (31-37) Red Cell Distribution Width 14.2 % (11.5-14.5) Platelet Count 232 x10^3/uL (140-400) Neutrophils (%) (Auto) 56 % (31-73) Lymphocytes (%) (Auto) 32 % (24-48) Monocytes (%) (Auto) 9 % (0-9) Eosinophils (%) (Auto) 2 % (0-3) Basophils (%) (Auto) 1 % (0-3) Neutrophils # (Auto) 3.2 x10^3/uL (1.8-7.7) Lymphocytes # (Auto) 1.8 x10^3/uL (1.0-4.8) Monocytes # (Auto) 0.5 x10^3/uL (0.0-1.1) Eosinophils # (Auto) 0.1 x10^3/uL (0.0-0.7) Basophils # (Auto) 0.1 x10^3/uL (0.0-0.2) Erythrocyte Sedimentation Rate 10 (0-15) Sodium Level 144 mmol/L (136-145) Potassium Level 3.8 mmol/L (3.5-5.1) Chloride Level 105 mmol/L (98-107) Carbon Dioxide Level 32 mmol/L (21-32) Anion Gap 7 (6-14) Blood Urea Nitrogen 9 mg/dL (8-26) Creatinine 0.9 mg/dL (0.7-1.3) Estimated GFR (Cockcroft-Gault) 101.2 BUN/Creatinine Ratio 10 (6-20) Glucose Level 80 mg/dL (70-99) Calcium Level 8.6 mg/dL (8.5-10.1) Total Bilirubin 1.1 mg/dL (0.2-1.0) Aspartate Amino Transf (AST/SGOT) 33 U/L (15-37) Alanine Aminotransferase (ALT/SGPT) 64 U/L (16-63) Alkaline Phosphatase 59 U/L (46-116) C-Reactive Protein, Quantitative 1.5 mg/L (0-3.3) Total Protein 6.8 g/dL (6.4-8.2) Albumin 3.2 g/dL (3.4-5.0) Albumin/Globulin Ratio 0.9 (1.0-1.7) Vitamin B12 Level 575 pg/mL (247-911) Thyroid Stimulating Hormone (TSH) 3.210 uIU/mL (0.358-3.74) Rheumatoid Factor 36.6 IU/mL (0.0-13.9) Treponema pallidum Antibody Nonreactive (Nonreactive) HIV (1&2) Antibody Screen Nonreactive (Nonreactive) Test 12/18/20 07:55 12/18/20 12:03 12/18/20 17:03 12/18/20 20:41 Glucose (Fingerstick) 82 mg/dL (70-99) 98 mg/dL (70-99) 128 mg/dL (70-99) 122 mg/dL (70-99) Test 12/19/20 08:17 Glucose (Fingerstick) 71 mg/dL (70-99) Laboratory Tests Test 12/18/20 12:03 12/18/20 17:03 12/18/20 20:41 12/19/20 08:17 Glucose (Fingerstick) 98 mg/dL (70-99) 128 mg/dL (70-99) 122 mg/dL (70-99) 71 mg/dL (70-99) Allergies Allergies Coded Allergies Type Severity Reaction Last Updated Verified Penicillins Allergy Intermediate 12/16/20 Yes Disposition/Orders: D/C to Home Justicifation of Admission Dx: Justifications for Admission: Justification of Admission Dx: Yes Cellulitis: Cellulitis MAMADOU PETERSON MD Dec 19, 2020 09:48
[2020-12-19] MEDS ORDERED: DIPH25CA23 PO (09:52)
[2020-12-19] MEDS ORDERED: TRIA15CR3 TP (09:52)
[2020-12-19] MEDS ORDERED: DOXY100T PO (09:52)
[2020-12-19] MEDS ORDERED: MONT10TA49 PO (09:52)
[2020-12-19] MEDS ORDERED: AMLO-186 PO (09:52)
[2020-12-19] MEDS ORDERED: PRED20TA PO (09:52)
[2020-12-19] MEDS ORDERED: CEPH250C PO (09:52)
[2020-12-19] MEDS ORDERED: FAMO20TA5 PO (09:52)
[2020-12-19] MEDS ORDERED: INSU100V35 SQ (09:52)
--- NOTE | 2020-12-19 09:53 | DISCH ---
DISCHARGE INSTRUCTIONS Condition on Discharge Condition on Discharge: Stable Activity After Discharge Activity Instructions for Disc: Activity as tolerated Driving Instructions after Dis: Do not drive today Diet after Discharge Diet after Discharge: Cardiac Liquid Texture: Thin Liquid Checks after Discharge Checks after discharge: Check blood press - daily Contacting the [facility]Perfect[facility] after DC Call your doctor for: If your condition worsens Follow-Up Follow up with: pcp this week, dermatology 1 week Treatment/Equipment after DC Adaptive Equipment Issued: None MAMADOU PETERSON MD Dec 19, 2020 09:53
--- NOTE | 2020-12-19 09:56 | NUR ---
SS following up with discharge planning. SS reviewed pt chart and discussed with pt RN. Pt is currently on room air. Pt on PO antibiotics. Discharge order on the chart for home with self care.
[2020-12-19 10:20] VITALS: BP 170/89
--- NOTE | 2020-12-19 12:05 | NUR ---
Discharge Note: DEEDEE BARKLEY Discharge instructions and discharge home medications reviewed with Patient and a copy given. All questions have been answered and understanding verbalized. The following instructions and handouts were given: Rash Patient discharged to home with self care via private vehicle.
[2020-12-19 17:14] LABS: ANA INTERP Positive (.)
== END 2020-12-19 12:09 | disposition home or self-care (01) | DRG 603 ==
LOC: ER 22:48 → 2 SOUTH 12-15 01:53 → OBSVTOIN 12-17 01:44
PROVIDERS: ADMIT Internal Medicine; ATTEND Internal Medicine
DX: L03.114 Cellulitis of left upper limb (principal); L03.116 Cellulitis of left lower limb; L03.115 Cellulitis of right lower limb; L23.89 Allergic contact dermatitis due to other agents; L03.113 Cellulitis of right upper limb; B88.8 Other specified infestations; D72.821 Monocytosis (symptomatic); E11.9 Type 2 diabetes mellitus without complications; E66.01 Morbid (severe) obesity due to excess calories; F17.210 Nicotine dependence, cigarettes, uncomplicated; I10 Essential (primary) hypertension; J45.909 Unspecified asthma, uncomplicated; L26 Exfoliative dermatitis; W57.XXXA Bitten or stung by nonvenomous insect and other nonvenomous arthropods, initial encounter; Z82.49 Family history of ischemic heart disease and other diseases of the circulatory system; Z83.3 Family history of diabetes mellitus; Z88.0 Allergy status to penicillin; S40.862A Insect bite (nonvenomous) of left upper arm, initial encounter; S40.861A Insect bite (nonvenomous) of right upper arm, initial encounter; S80.862A Insect bite (nonvenomous), left lower leg, initial encounter; S80.861A Insect bite (nonvenomous), right lower leg, initial encounter; Y93.89 Activity, other specified; Y92.89 Other specified places as the place of occurrence of the external cause; Y99.8 Other external cause status; Z90.49 Acquired absence of other specified parts of digestive tract
CPT/HCPCS: 36415; 71260; 74177; 80053; 82607; 82962; 84443; 85007; 85025; 85651; 86038; 86140; 86431; 86592; 86703; 86705; 86709; 86803; 87340; 96365; 99285; G0378; G0379; J1815; J3370; J7050; J7512; Q9966; Q9967; J7030; Q0163